=== PATIENT | female | born 1945 | race Caucasian/White ===

== ENCOUNTER 2018-06-14 01:11 | Outpatient (CLI) | payer MEDICARE, BC, SELFPAY ==
[2018-06-14 12:36] LABS: ALT 16 U/L (12-78); AST 18 U/L (15-37); Albumin 3.6 g/dL (3.4-5.0); Alkaline Phosphatase 48 U/L (46-116); Anion Gap 11.2 mmol/L (3-11); BUN 12 mg/dL (7-18); Bilirubin, Total 0.4 mg/dL (0.2-1.0); CO2 26.8 mmol/L (21.0-32.0); CREATININE 0.61 mg/dL (0.55-1.02); Chloride 104 mmol/L (98-107); Cholesterol 259 mg/dL (50-200); Glucose 86 mg/dL (70-100); HDL Cholesterol 113 mg/dL (40-60); LDL CHOLESTEROL 133 mg/dL (<100); Potassium 3.9 mmol/L (3.5-5.1); Sodium 142 mmol/L (136-145); Total Protein 6.9 g/dL (6.4-8.2); Triglyceride 33 mg/dL (30-150)
== END 2018-06-14 01:31 ==
PROVIDERS: PCP Family Medicine; Visit Provider Family Medicine
DX: I10 Essential (primary) hypertension (principal)
CPT/HCPCS: 36415; 80053; 80061; 83721

== ENCOUNTER → 2018-06-22 09:09 | Outpatient (BNVA) | payer MEDICARE, BC, SELFPAY | PROVIDERS: PCP Family Medicine; Referring Provider Family Medicine; Visit Provider Student in an Organized Health Care Education/Training Program | DX: S43.431D Superior glenoid labrum lesion of right shoulder, subsequent encounter (principal); X58.XXXD Exposure to other specified factors, subsequent encounter; I10 Essential (primary) hypertension | CPT/HCPCS: 99213 ==

== ENCOUNTER 2018-07-18 10:49 | Outpatient (CLI) | payer MEDICARE, BC, SELFPAY ==
--- NOTE | 2018-07-18 12:57 | W.PREOPHP ---
Date of service: 07/18/18 Assessment and Plan (1) Superior glenoid labrum lesion of right shoulder, initial encounter: Current visit: Yes Status: Chronic Right shoulder arthroscopy with biceps tenotomy. Details of surgery, as well as risks and pertinent anatomy, were discussed with patient. She comes in with multiple questions which were answered to her satisfactory. History of Present Illness Chief Complaint: Bilateral shoulder pain, right worse than left Narrative: Shi is a 72-year-old female who is been complaining of right shoulder pain for multiple years now. She states that she has had pain especially with heavy lifting away from her body, but more significantly pain at night, and while she is driving. Whenever her arm is at her side when she is in a seated position or when she is driving long distances she has significant pain. She does a lot of driving so this causes her pain a lot of the time. She also has pretty excruciating pain at night. She has been continue to do exercises, as they do not seem to bother her shoulder. She has had injections in the right shoulder, the most recent injection being an intra-articular injection done by Dr. Peraza which gave her a couple of months of relief from her shoulder pain. The pain has since returned to the point where she is unable to sleep or drive for any length of time. She has had an MRI done of the right shoulder which does not show any type of rotator cuff tear. There is some degeneration of the rotator cuff suggestive of a possible partial tear, but she does have a SLAP tear in the right shoulder. She also states that her left shoulder has been bothering her a little bit more, to the point where she is unable to really lift her left arm away from her body especially she is been using her shoulder for most of the day. If she takes [id number] pain medicine, she is able to use the left shoulder little bit better. Since she has failed conservative treatment of the right shoulder, Dr. Peraza does suggest a right shoulder arthroscopy with biceps tenotomy, and at the same time he would do a left shoulder injection. She agrees with this plan and is anxious to proceed. Pertinent Surgical Information Patient denies history of CVA, [place], angina, asthma, COPD, renal or liver disorders, hepatitis, bleeding disorders, diabetes, immune or thyroid disorders. Only procedure she as had was a colonoscopy. No complications from anesthesia. Review of Systems Constitutional Denies fever(s) ENT Denies dizziness and Denies sore throat Cardiovascular Denies chest pain, Denies palpitations and Denies dyspnea Respiratory Denies dyspnea Gastrointestinal Denies abdominal pain, Denies melena, Denies hematochezia, Denies diarrhea, Denies nausea and Denies vomiting Genitourinary Denies hematuria and Denies dysuria Neurologic Denies dizziness Endocrine Denies palpitations [facility] Medical History Vertigo (Chronic 08/01/14) Superior glenoid labrum lesion of right shoulder, initial encounter (Chronic 10/18/17) Rotator cuff tear arthropathy (Chronic 10/16/14) Polyp of colon (Chronic 06/10/01) Onychomycosis (Chronic) Numbness of hand (Chronic) Low back pain radiating to left leg (Chronic 02/04/16) Essential hypertension (Chronic 06/23/13) Diverticulosis (Chronic) 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 Sister Substance abuse Alcohol abuse Brother Neoplasm Brother No problems noted. Brother No problems noted. Son No problems noted. Daughter No problems noted. Social History Smoking/Tobacco Use Status: Former Tobacco Use how long ago did patient quit smokin years ago alcohol intake: current alcohol intake frequency: 0-2 drinks per day Alcohol type: wine Meds Home Medications Medication Instructions Recorded Confirmed Type cyanocobalamin (vitamin B-12) 1,000 mcg PO DAILY 02/09/13 07/18/18 History [Vitamin B-12] Toney-E 2 tab PO DAILY 07/22/15 07/18/18 History losartan-hydrochlorothiazide 1 tab-cap PO DAILY #90 tab-cap 12/07/17 07/18/18 Rx cholecalciferol (vitamin D3) 2,000 2,000 unit PO DAILY 06/14/18 07/18/18 History unit capsule ibuprofen 200 mg tablet 400 mg PO BID PRN tab 06/14/18 07/18/18 History Allergies Allergy/AdvReac Type Severity Reaction Status Date / Time Penicillins Allergy Mild Skin Rash Unverified 07/18/18 11:24 Exam [facility] Head: normocephalic and atraumatic General nose exam: no nasal discharge Throat: uvula midline and no uvular edema Other: soft palate rises symmetrically, no erythema Eyes Conjunctivae: conjunctivae normal Sclera: sclerae normal Pupils: PERRL Resp Effort & Inspection: normal respiratory effort Auscultation: clear to auscultation bilaterally and no wheezes Cardio Rate: regular rate Rhythm: regular rhythm Heart Sounds: S1 normal, S2 normal and no murmurs Extrem Other: Brief exam of RIGHT AC joint does not reveal pain to palpation.
--- NOTE | 2018-07-18 13:02 | HPE_ITS ---
Date of service: 07/18/18 Assessment and Plan (1) Superior glenoid labrum lesion of right shoulder, initial encounter: Current visit: Yes Status: Chronic Right shoulder arthroscopy with biceps tenotomy. Details of surgery, as well as risks and pertinent anatomy, were discussed with patient. She comes in with multiple questions which were answered to her satisfactory. History of Present Illness Chief Complaint: Bilateral shoulder pain, right worse than left Narrative: Shi is a 72-year-old female who is been complaining of right shoulder pain for multiple years now. She states that she has had pain especially with heavy lifting away from her body, but more significantly pain at night, and while she is driving. Whenever her arm is at her side when she is in a seated position or when she is driving long distances she has significant pain. She does a lot of driving so this causes her pain a lot of the time. She also has pretty excruciating pain at night. She has been continue to do exercises, as they do not seem to bother her shoulder. She has had injections in the right shoulder, the most recent injection being an intra-articular injection done by Dr. Peraza which gave her a couple of months of relief from her shoulder pain. The pain has since returned to the point where she is unable to sleep or drive for any length of time. She has had an MRI done of the right shoulder which does not show any type of rotator cuff tear. There is some degeneration of the rotator cuff suggestive of a possible partial tear, but she does have a SLAP tear in the right shoulder. She also states that her left shoulder has been bothering her a little bit more, to the point where she is unable to really lift her left arm away from her body especially she is been using her shoulder for most of the day. If she takes [id number] pain medicine, she is able to use the left shoulder little bit better. Since she has failed conservative treatment of the right shoulder, Dr. Peraza does suggest a right shoulder arthroscopy with biceps tenotomy, and at the same time he would do a left shoulder injection. She agrees with this plan and is anxious to proceed. Pertinent Surgical Information Patient denies history of CVA, [place], angina, asthma, COPD, renal or liver disorders, hepatitis, bleeding disorders, diabetes, immune or thyroid disorders. Only procedure she as had was a colonoscopy. No complications from anesthesia. Review of Systems Constitutional Denies fever(s) ENT Denies dizziness and Denies sore throat Cardiovascular Denies chest pain, Denies palpitations and Denies dyspnea Respiratory Denies dyspnea Gastrointestinal Denies abdominal pain, Denies melena, Denies hematochezia, Denies diarrhea, Denies nausea and Denies vomiting Genitourinary Denies hematuria and Denies dysuria Neurologic Denies dizziness Endocrine Denies palpitations [facility] Medical History Vertigo (Chronic 08/01/14) Superior glenoid labrum lesion of right shoulder, initial encounter (Chronic 10/18/17) Rotator cuff tear arthropathy (Chronic 10/16/14) Polyp of colon (Chronic 06/10/01) Onychomycosis (Chronic) Numbness of hand (Chronic) Low back pain radiating to left leg (Chronic 02/04/16) Essential hypertension (Chronic 06/23/13) Diverticulosis (Chronic) 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 Sister Substance abuse Alcohol abuse Brother Neoplasm Brother No problems noted. Brother No problems noted. Son No problems noted. Daughter No problems noted. Social History Smoking/Tobacco Use Status: Former Tobacco Use how long ago did patient quit smokin years ago alcohol intake: current alcohol intake frequency: 0-2 drinks per day Alcohol type: wine Meds Home Medications Medication Instructions Recorded Confirmed Type cyanocobalamin (vitamin B-12) 1,000 mcg PO DAILY 02/09/13 07/18/18 History [Vitamin B-12] Toney-E 2 tab PO DAILY 07/22/15 07/18/18 History losartan-hydrochlorothiazide 1 tab-cap PO DAILY #90 tab-cap 12/07/17 07/18/18 Rx cholecalciferol (vitamin D3) 2,000 2,000 unit PO DAILY 06/14/18 07/18/18 History unit capsule ibuprofen 200 mg tablet 400 mg PO BID PRN tab 06/14/18 07/18/18 History Allergies Allergy/AdvReac Type Severity Reaction Status Date / Time Penicillins Allergy Mild Skin Rash Unverified 07/18/18 11:[address] [facility] Head: normocephalic and atraumatic General nose exam: no nasal discharge Throat: uvula midline and no uvular edema Other: soft palate rises symmetrically, no erythema Eyes Conjunctivae: conjunctivae normal Sclera: sclerae normal Pupils: PERRL Resp Effort & Inspection: normal respiratory effort Auscultation: clear to auscultation bilaterally and no wheezes Cardio Rate: regular rate Rhythm: regular rhythm Heart Sounds: S1 normal, S2 normal and no murmurs Extrem Other: Brief exam of RIGHT AC joint does not reveal pain to palpation.
== END 2018-07-18 11:09 ==
PROVIDERS: PCP Family Medicine; Visit Provider Student in an Organized Health Care Education/Training Program
DX: S43.431D Superior glenoid labrum lesion of right shoulder, subsequent encounter (principal); M75.81 Other shoulder lesions, right shoulder; Z01.818 Encounter for other preprocedural examination; X58.XXXD Exposure to other specified factors, subsequent encounter; I10 Essential (primary) hypertension
CPT/HCPCS: NC

== ENCOUNTER 2018-07-28 05:56 | Day surgery (SDC) | payer MEDICARE, BC, SELFPAY ==
[2018-07-28] VITALS (8 sets, daily range): BP systolic 131–153; BP diastolic 52–89; PULSE 70–78; RESP 16–21; TEMP 36–36.6; O2SAT 95–100
[2018-07-28] MEDS: Lactated Ringers 1,000 ML 80 ML IV (06:29)
[2018-07-28] MEDS: Bupivacaine LIPOSOME/PF 133 MG/10 ML VIAL IJ (07:13)
[2018-07-28] MEDS: Bupivacaine 0.5% Pres-Free 30 ML VIAL (07:13)
--- NOTE | 2018-07-28 07:29 | PDOC.DSDIS_ITS ---
Discharge Plan Disposition Patient Disposition: HOME Condition: Good Discharge Details Reason For Visit: (R) SLAP TEAR,RTC TENDONITIS Attending Provider: Kavon Peraza Primary Care Provider: Scarlet Wallace Home Meds and New Rx's Prescriptions: New ibuprofen 600 mg tablet 600 mg PO TID PRNQty: 90 RF: 3 acetaminophen 500 mg capsule 1,000 mg PO Q8H PRN (Reason: pain) Qty: 90 RF: 0 oxycodone 5 mg tablet 5 mg PO Q6H PRN PRNQty: 8 RF: 0 Continued cholecalciferol (vitamin D3) 2,000 unit capsule 2,000 unit PO DAILY RF: 0 cyanocobalamin (vitamin B-12) [Vitamin B-12] 1,000 MCG tablet extended release 1,000 mcg PO DAILY RF: 0 losartan-hydrochlorothiazide 1 EACH tablet 1 tab-cap PO DAILY Qty: 90 RF: 4 Toney-E 200 MG tablet 2 tab PO DAILY RF: 0 Discontinued ibuprofen 200 mg tablet 400 mg PO BID PRNRF: 0 Discharge Instructions Stand Alone Forms: [facility] Shoulder Arthro Referrals: Kavon Peraza MD [ [facility] STAFF PHYSICIAN] - Equipment/Supplies: Sling Activity:: Activity as Tolerated Remove Dressings/Wound Care:: 72 hours Shower/Bathe:: 72 hours Diet:: As Tolerated Discharge Orders Discharge Orders: Discharge Order (Routine); Ordered 07/28/18 Ordered By: Kavon Peraza DS: Diagnosis Discharge Diagnosis (1) Superior glenoid labrum lesion of right shoulder, initial encounter: Status: Chronic
[2018-07-28] MEDS: methylPREDNISolone ACETATE 80 MG/ML VIAL (07:46)
[2018-07-28] MEDS: Bupivacaine 0.25% Pres-Free 30 ML VIAL (07:46)
--- NOTE | 2018-07-29 18:07 | ROE_ITS ---
Date of service: 07/28/18 Time of Service: 10:01 Operative Note DATE OF PROCEDURE: 07/28/18 PROCEDURE: - Extensive debridement of anterior and posterior glenohumeral joint and rotator cuff - Subacromial Debridement with Acromioplasty SURGEON: Kavon Peraza MEDICAL PHYSICIST: Marquise Rosas ANESTHESIA: GETA and regional ESTIMATED BLOOD LOSS: 0 PATHOLOGY: none sent COMPLICATIONS: None Patient was transported to: PACU Patient's condition: stable Indications: I have seen Shi in clinic for a painful shoulder. Pathology was confirmed based on MRI and exam findings. Nonoperative measures were exhausted but disability and pain persisted. I discussed shoulder arthroscopy and procedures. I reviewed the risks of the procedures to include, but not limited to, bleeding, infection, pain, stiffness, damage to nerves or vessels, recurrence, hardware failure, blood clot. Despite these risks, the patient elected to proceed. Findings: A diagnostic arthroscopy was performed with the following findings: - Glenohumeral Joint: No significant arthritic changes noted - Labrum: Significant inflammatory change seen in the superior labrum with elevation of the labrum off of the superior glenoid, approximately 5 mm. - Cuff: Some degeneration seen of the articular fibers of the superior rotator cuff - Biceps: Partial tearing and inflammation seen at the biceps tendon especially at his anchor - Subacromial: Significant bursitis, 2 mm partial tearing of the supraspinatus on the bursal surface, small anterolateral spur Procedure Description: Shi was greeted in the preoperative holding area where the correct side was identified and marked. The consent was reviewed with the patient and signed. The history and physical was updated. All questions were answered. She was taken back to the PACU for administration of an intrascalene nerve block. She was then taken to the operating room. The patient was placed into the supine position on the operating room table. A general anesthetic was administered. Shi was then positioned in the beach chair position. All bony prominences were well padded. The head was placed in a foam head animal trainer in a neutral position. Prophylactic antibiotics in the form of cefazolin were administered. The right arm/shoulder was then prepped with Chloraprep and draped in a standard fashion with stockinette and shoulder drape. A timeout to confirm correct identity, side and site, procedure, allergies, anesthesia, and medical concerns was performed. The arm was placed into a pneumatic burnett, [id number]. The shoulder arthroscopy was then performed. The glenohumeral joint was injected with 20 cc of normal saline with good flow back. A standard posterior portal was made and the joint was entered atraumatically with a blunt arthroscope. Once inside we had good visualization of the structures of the glenohumeral joint. An anterior portal was established with spinal needle local ization. A 6.5 mm cannula was inserted. A probe was then used to perform a diagnostic arthroscopy. There is noted to be no significant cartilage damage of the glenoid humeral joint. The labrum was was intact which showed significant signs of inflammation superiorly. There is also elevation of the superior labrum off of the superior glenoid but it was not completely detached, approximately 4-5 mm of recess. Inflammatory changes are seen at the anchor of the biceps tendon with some partial tearing of the biceps tendon.. There were no loose bodies in the inferior pouch. The superior rotator cuff was attached to the tuberosity. However there were some degenerative changes seen in the tendon itself. Using a shaver, this was debrided down into the tendon appeared much healthier. This was approximately 2-3 mm of articular resection. The subscapularis was intact. A biceps tenotomy was performed electrocautery. The superior labrum from approximately 11 to 2:00 was debrided removing any loose pieces. The superior glenoid was also debrided to promote some scarring of the superior labrum. The arthroscope was then inserted into the subacromial space. The 6.5 mm cannula was placed lateral to the CA ligament. A complete bursectomy is performed anteriorly, posteriorly, and laterally with electrocautery and shaver. This had excellent exposure of the rotator cuff. The bursal side rotator cuff was evaluated and this showed what appeared to be a partial bursal tear of the supraspinatus. It was crescent in shape and was only about 2 mm in thickness. Therefore, this was debrided. There was small anterolateral spur. Using a spinal needle a lateral portal was established. This became the viewing portal. A 5.0 mm sukh was then inserted from the posterior portal. The anterolateral corner of the acromion was then resected in plane with the posterior slope of the acromion. The scope equipment was removed from the shoulder. Excess fluid was evacuated. The portal sites were closed with 3-0 Monocryl. The wounds were dressed with Steri-Strips, 4 x 4's, ABDs, Medipore tape. A sling was applied. The patient tolerated the procedure well and was returned to the Same Day Surgery area in a stable condition suffering no known complication.
== END 2018-07-28 11:00 | disposition home or self-care (01) ==
PROVIDERS: PCP Family Medicine; Visit Provider Student in an Organized Health Care Education/Training Program
PROC: (CPT 29805; principal; 2018-07-28 07:30)
PROC: (CPT 29823; 2018-07-28 07:30)
DX: M75.81 Other shoulder lesions, right shoulder (principal); S43.431A Superior glenoid labrum lesion of right shoulder, initial encounter; X58.XXXA Exposure to other specified factors, initial encounter; M75.21 Bicipital tendinitis, right shoulder; M75.101 Unspecified rotator cuff tear or rupture of right shoulder, not specified as traumatic
CPT/HCPCS: 29823; 29826; 76942; J0690; J1040; J1100; J1885; J2370; J2405; L3670

== ENCOUNTER → 2018-08-10 13:29 | Outpatient (BNVA) | payer MEDICARE, BC, SELFPAY | PROVIDERS: PCP Family Medicine; Referring Provider Family Medicine; Visit Provider Student in an Organized Health Care Education/Training Program | DX: Z47.89 Encounter for other orthopedic aftercare (principal); M75.81 Other shoulder lesions, right shoulder; S43.431D Superior glenoid labrum lesion of right shoulder, subsequent encounter; X58.XXXD Exposure to other specified factors, subsequent encounter; M75.21 Bicipital tendinitis, right shoulder; M75.101 Unspecified rotator cuff tear or rupture of right shoulder, not specified as traumatic ==

== ENCOUNTER → 2018-09-07 10:00 | Outpatient (BNVA) | payer MEDICARE, BC, SELFPAY | PROVIDERS: PCP Family Medicine; Referring Provider Family Medicine; Visit Provider Student in an Organized Health Care Education/Training Program | DX: Z47.89 Encounter for other orthopedic aftercare (principal); S43.421D Sprain of right rotator cuff capsule, subsequent encounter; I10 Essential (primary) hypertension; X58.XXXD Exposure to other specified factors, subsequent encounter ==

== ENCOUNTER → 2018-10-12 10:39 | Outpatient (BNVA) | payer MEDICARE, BC, SELFPAY | PROVIDERS: PCP Family Medicine; Referring Provider Family Medicine; Visit Provider Student in an Organized Health Care Education/Training Program | DX: Z47.89 Encounter for other orthopedic aftercare (principal); I10 Essential (primary) hypertension; M75.101 Unspecified rotator cuff tear or rupture of right shoulder, not specified as traumatic ==

== ENCOUNTER 2018-11-24 18:57 | Outpatient (REF) | payer MEDICARE, BC, SELFPAY | END 2018-11-24 19:17 | LOC: NCHCN 18:57 | PROVIDERS: PCP Family Medicine; Visit Provider Nurse Practitioner Family | DX: N89.8 Other specified noninflammatory disorders of vagina (principal); R35.0 Frequency of micturition | CPT/HCPCS: 87077; 87086; 87480; 87510; 87660 ==

== ENCOUNTER 2018-12-28 00:52 | Outpatient (CLI) | payer MEDICARE, BC, SELFPAY ==
--- NOTE | 2018-12-28 12:46 | DI.US_ITS ---
SYMPTOMS/DIAGNOSIS: DYSFUNCTIONAL UTERINE BLEEDING, N93.8, ABNORMAL UTERINE AND VAGINAL BLEEDING PELVIC ULTRASOUND: The uterus contains numerous small calcifications and measures 5.6 cm in length, 3.1 cm in height and 5.4 cm in width with an endometrial stripe thickness of 5.9 mm. There is a question regarding the possibility of an endometrial polyp, which may measure 9.2 x 3.1 x 9 mm. Also, there is a question regarding a small amount of fluid in the endometrial cavity. There is in additional a fibroid in the mid portion of the uterus measuring 10 x 9.8 x 12 mm. There is only limited visualization of the ovaries. The right ovary measures 2.3 x 1.5 x 1.6 cm, the left ovary 2.1 x 1.0 x 1.3 cm. SUMMARY: Diffuse small uterine calcifications seen. There is a question regarding a small polyp in the endometrial cavity where there is a small quantity of fluid. Given the patient's findings today and clinical status, further assessment with hysteroscopy is suggested.
== END 2018-12-28 01:12 ==
PROVIDERS: PCP Family Medicine; Visit Provider Family Medicine
DX: N93.8 Other specified abnormal uterine and vaginal bleeding (principal); N85.8 Other specified noninflammatory disorders of uterus; D25.9 Leiomyoma of uterus, unspecified
CPT/HCPCS: 76830; 76856

== ENCOUNTER → 2019-01-04 09:42 | Outpatient (BNVA) | payer MEDICARE, BC, SELFPAY | PROVIDERS: PCP Family Medicine; Referring Provider Family Medicine; Visit Provider Student in an Organized Health Care Education/Training Program | DX: Z47.89 Encounter for other orthopedic aftercare (principal); M25.511 Pain in right shoulder; M54.5 Low back pain; M79.605 Pain in left leg; I10 Essential (primary) hypertension | CPT/HCPCS: 99213 ==

== ENCOUNTER 2019-01-11 06:09 | Day surgery (SDC) | payer MEDICARE, BC, SELFPAY ==
[2019-01-11] VITALS (8 sets, daily range): BP systolic 163–184; BP diastolic 59–84; PULSE 58–72; RESP 12–18; TEMP 36.2–36.6; O2SAT 96–98
[2019-01-11] MEDS: Lactated Ringers 1,000 ML 125 ML IV ×2 (06:40→08:20)
[2019-01-11 06:58] LABS: Absolute Basophil Count 0.05 k/cumm (0.0-0.2); Absolute Eosinophil Count 0.18 k/cumm (0.0-0.7); Absolute Monocyte Count 0.43 k/cumm (0.11-0.7); Absolute Neutrophil Count 1.92 k/cumm (1.2-6.7); Basophils % 1.1; HCT 39.6 % (36.0-46.0); HGB 13.4 g/dL (12.0-15.5); Lymphocytes % 42.4; Mean Corp. HGB Concentration 33.8 g/dL (32.0-36.0); Mean Corpuscular Hemoglobin 31.9 pg (27.0-33.0); Mean Corpuscular Volume 94.3 fL (80-95); Mean Platelet Volume 9.4 fL (8.0-11.0); Monocytes % 9.6; Neutrophils % 42.9; Platelet Count 259 x1000/uL (130-400); White Blood Cell Count 4.48 k/cumm (4.4-10.8)
[2019-01-11] MEDS: Lidocaine 1% Multi-Dose 50 ML VIAL (07:58)
[2019-01-11] MEDS: Ketorolac 30 MG/ML VIAL 15 MG IVP (08:51)
--- NOTE | 2019-01-11 17:35 | ROE_ITS ---
Date of service: 01/11/19 Time of Service: 17:32 Operative Note DATE OF PROCEDURE: 01/11/19 PRE-OP DIAGNOSIS: Endometrial polyp PROCEDURE: Hysteroscopy. Attempt at D&C SURGEON: Epifanio Avila ANESTHESIA: MAC ESTIMATED BLOOD LOSS: 5 PATHOLOGY: none sent COMPLICATIONS: None Patient was transported to: PACU Patient's condition: stable Findings: 1. Stenotic cervix with inability to access endometrial cavity. Procedure Description: The patient was taken to the operating room and after adequate with sedation the patient was placed in lithotomy position. A weighted speculum was placed in the vagina with good visualization of the cervix. Vaginal access was significantly limited however due to atrophy. paracervical block with 10 cc of 1% plain lidocaine solution was instilled. The anterior lip of the cervix was grasped with a single-tooth tenaculum. The cervix was gently dilated with García dilators but was severely stenotic. The 5 mm or degree hysteroscope was advanced with significant difficulty. I was able to partially enter the endometrial cavity with hysteroscope and there were what appeared to be intrauterine synechiae. I was unable to visualize the polyp. Also unable to pass the scope beyond the internal os. The hysteroscope was removed and I did further attempt to dilate the cervix but was never able to pass even the smallest curette. I did pass a Kevorkian curette but was concerned for the possibility of uterine perforation at this point. The decision was made to abandon the procedure despite not being able to perform the polypectomy. All i nstrumention was removed and the patient was transferred to PACU stable condition.
== END 2019-01-11 11:23 | disposition home or self-care (01) ==
LOC: SUR 06:09
PROVIDERS: PCP Family Medicine; Visit Provider Obstetrics & Gynecology
PROC: 0UDB8ZZ Extraction of Endometrium, Via Natural or Artificial Opening Endoscopic (ICD-10-PCS; CPT 58558; principal; 2019-01-11 07:30)
DX: N84.0 Polyp of corpus uteri (principal); N88.2 Stricture and stenosis of cervix uteri; N85.6 Intrauterine synechiae; N95.2 Postmenopausal atrophic vaginitis; I10 Essential (primary) hypertension
CPT/HCPCS: 58555; 36415; 86850; 86900; 86901; 85025; J1100; J1885; J2405; J3010

== ENCOUNTER 2019-02-01 00:34 | Outpatient (CLI) | payer MEDICARE, BC, SELFPAY ==
--- NOTE | 2019-02-01 12:30 | DI.MAMMO_ITS ---
SYMPTOMS/DIAGNOSIS: SCREENING, Z12.31 MAMMOGRAMS: Mammograms were interpreted according to the usual protocol including computer analysis with CAD system, tomosynthesis and C view imaging. Comparison is made with prior examinations. No suspicious masses or microcalcifications are seen. There is no definite evidence of malignancy. IMPRESSION: Negative mammogram. Routine screening is recommended. Category 1, breast density B. MQSA ASSESSMENT OF FINDINGS: Negative. Category 1. Patient will receive a letter notifying them of these results. BI-RADS category B. There are scattered areas of fibroglandular density.
--- NOTE | 2019-02-01 12:40 | DI.RAD_ITS ---
SYMPTOM/DIAGNOSIS: HIP PAIN BILAT M25.559 M25.551 M25.552 PELVIS AND BILATERAL HIPS: No priors. In the right hip there is moderate joint space narrowing. There are prominent hypertrophic changes seen at the acetabular roof. Subchondral sclerosis is present. In the left hip there is mild to moderate joint space narrowing and hypertrophic changes of the acetabulum. No acute fractures or dislocations are seen. There are degenerative changes seen at the sacroiliac joints. Symphysis pubis appears intact. The soft tissues are unremarkable. 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
--- NOTE | 2019-02-01 12:40 | DI.RAD_ITS ---
SYMPTOM/DIAGNOSIS: LBP, ACUTE LEFT SIDED LBP M54.5 LUMBAR SPINE: AP , lateral and bilateral oblique views of the lumbar spine were obtained. There are 5 lumbar type vertebral bodies. There is Grade 1 pseudospondylolisthesis of L4 on L5. The disc heights appear well maintained. There are end plate osteophytes throughout the lumbar spine. The findings are most marked at L3-4 and L4-5. There are degenerative changes at the facets throughout the lumbar spine. No acute fracture or subluxation is seen. The bones appear mildly osteopenic. Calcium is seen in the abdominal aorta. IMPRESSION: Moderately severe degenerative changes in the lumbar spine.
== END 2019-02-01 00:54 ==
PROVIDERS: PCP Family Medicine; Visit Provider Family Medicine
DX: Z12.31 Encounter for screening mammogram for malignant neoplasm of breast (principal); M25.551 Pain in right hip; M25.552 Pain in left hip; M54.5 Low back pain; M16.0 Bilateral primary osteoarthritis of hip; M43.16 Spondylolisthesis, lumbar region
CPT/HCPCS: 73521; 77063; 77067; 72110

== ENCOUNTER 2019-06-30 02:18 | Outpatient (CLI) | payer MEDICARE, BC, SELFPAY ==
--- NOTE | 2019-06-30 08:10 | DI.US_ITS ---
EXAM: US PELVIS TRANSVAGINAL CLINICAL HISTORY: thickened endometrial lining, dysfunctional uterine bleeding TECHNIQUE: Ultrasound performed using standard protocol. COMPARISON: US PELVIS TRANSVAGINAL from 12/28/2018 FINDINGS: Pelvic ultrasound was performed transabdominally and transvaginally. Please see the accompanying allyssa a sheet for measurements of the pelvic structures. Uterus is normal in size and shape. Endometrial stripe is thickened and heterogeneous with fluid in the endometrial cavity. There is a probable 10 x 9 x 4 millimeter in diameter endometrial polyp. Ovaries appear normal for age. No free fluid identified in the cul-de-sac. Limited scanning of the kidneys is unremarkable. IMPRESSION: Abnormal appearance of the endometrium with heterogeneity of the stripe, probable 10 millimeter polyp , and fluid in the endometrial cavity. Neoplastic disease not excluded and endometrial biopsy is rec ommended.
== END 2019-06-30 02:38 ==
PROVIDERS: PCP Family Medicine; Visit Provider Family Medicine
DX: N93.8 Other specified abnormal uterine and vaginal bleeding (principal); R93.89 Abnormal findings on diagnostic imaging of other specified body structures; N84.0 Polyp of corpus uteri
CPT/HCPCS: 76830; 76856

== ENCOUNTER 2019-07-17 01:24 | Outpatient (CLI) | payer MEDICARE, BC, SELFPAY ==
--- NOTE | 2019-07-17 14:45 | DI.MRI_ITS ---
EXAM: MR LUMBAR SPINE WO CLINICAL HISTORY: left LBP and leg pain M54.16 RADICULOPATHY. TECHNIQUE: Multiplanar multisequence MRI was performed. COMPARISON: XR lumbar spine complete from 02/01/2019 FINDINGS: There is no evidence of compression fracture. The marrow signal is normal. Conus medullaris appea rs normal. Parapelvic cysts are noted in the left kidney. The L1-2 disc appears normal. There are facet degenerative changes and ligamentous hypertrophy causing mild spinal stenosis. At L2-3, the disc appears normal. There is again ligamentous hypertrophy and facet degenerative rudolph ges causing mild narrowing of the AP dimension of the central canal. At L 3 4, there are broad-based disc osteophytes as well as facet degenerative changes and ligamentous hypertrophy combining to prod uce severe central canal stenosis and mild bilateral neural foraminal narrowing. At L4-5, there is mild loss of disc height and broad-based disc bulging. There are prominent facet d egenerative changes causing mild spondylolisthesis. There is severe central canal stenosis and moder ate to severe bilateral neural foraminal narrowing. At L5-S1, there is mild disc bulging. There are mild to moderate facet joint degenerative changes. There is neural foraminal encroachment bilateral ly of moderate degree. IMPRESSION: Degenerative disc changes and facet degenerative changes combine to produce severe central canal sten osis and neural foraminal narrowing at L3-4 and L4-5.
== END 2019-07-17 01:44 ==
PROVIDERS: PCP Family Medicine; Visit Provider Family Medicine
DX: M54.5 Low back pain (principal); M54.16 Radiculopathy, lumbar region; M47.27 Other spondylosis with radiculopathy, lumbosacral region; M51.17 Intervertebral disc disorders with radiculopathy, lumbosacral region
CPT/HCPCS: 72148

== ENCOUNTER 2019-08-30 03:26 | Outpatient (CLI) | payer MEDICARE, BC, SELFPAY ==
[2019-08-30 10:45] LABS: ALT 17 U/L (14-59); AST 19 U/L (15-37); Albumin 3.7 g/dL (3.4-5.0); Alkaline Phosphatase 56 U/L (46-116); BUN 9 mg/dL (7-18); Bilirubin, Total 0.5 mg/dL (0.2-1.0); CREATININE 0.62 mg/dL (0.55-1.02); Calcium 8.8 mg/dL (8.5-10.1); Calculated LDL 147 mg/dL (<100); Chloride 100 mmol/L (98-107); Cholesterol 271 mg/dL (<200); Glucose 85 mg/dL (74-106); HDL Cholesterol 108 mg/dL (40-60); Potassium 3.6 mmol/L (3.5-5.1); Sodium 138 mmol/L (136-145); TSH (W/Ref FT4) 1.64 uIU/mL (0.36-3.74); Total Protein 6.9 g/dL (6.4-8.2); Triglyceride 81 mg/dL (<150)
== END 2019-08-30 03:46 ==
PROVIDERS: PCP Family Medicine; Visit Provider Family Medicine
DX: E78.00 Pure hypercholesterolemia, unspecified (principal); I10 Essential (primary) hypertension; N93.8 Other specified abnormal uterine and vaginal bleeding
CPT/HCPCS: 36415; 80053; 80061; 84443

== ENCOUNTER 2019-09-05 02:31 | Outpatient (CLI) | payer MEDICARE, BC, SELFPAY ==
[2019-09-05 11:12] LABS: HGB 12.8 g/dL (12.0-15.5); Mean Corp. HGB Concentration 33.7 g/dL (32.0-36.0); Mean Corpuscular Hemoglobin 31.9 pg (27.0-33.0); Mean Corpuscular Volume 94.8 fL (80-95); Mean Platelet Volume 9.4 fL (8.0-11.0); Platelet Count 306 x1000/uL (130-400); RBC 4.01 m/cumm (4.00-5.20); RBC Distribution Width 12.3 % (11.7-14.6); White Blood Cell Count 4.92 k/cumm (4.4-10.8)
== END 2019-09-05 02:51 ==
PROVIDERS: PCP Family Medicine; Visit Provider Emergency Medicine
DX: I10 Essential (primary) hypertension (principal); Z01.818 Encounter for other preprocedural examination
CPT/HCPCS: 36415; 85027

== ENCOUNTER 2020-08-13 01:36 | Outpatient (CLI) | payer MEDICARE, BC, SELFPAY ==
--- NOTE | 2020-08-13 | DI.US_ITS ---
EXAM: US PELVIS TRANSVAGINAL CLINICAL HISTORY: ENDOMETRIAL POLYP,N84.0,F/U ABNL US OF UTERUS,R93.5. TECHNIQUE: Transabdominal and transvaginal pelvic ultrasound was performed using standard protocol. COMPARISON: US US PELVIS TRANSVAGINAL from 06/30/2019 FINDINGS: KIDNEYS: Kidneys are symmetric in size. No evidence of renal calculi. No evidence of hydronephrosis. There are 2 left simple parapelvic cysts. One cyst measures 1 x 1.4 x 0.8 cm. The 2nd cyst measures 1.2 x 2 x 1.4 cm. UTERUS: Position: Anteverted. Size: 5.4 long by 2.7 AP by 4.7 transverse cm Endometrium: Within the endometrial canal there is again seen a 0.8 x 0.4 x 1.3 cm solid mildly vascu lar mass. Previously this measured 0.9 x 0.4 x 1.0 cm. There is a small amount of fluid seen within the endometrial canal. Myometrium: 4 discrete myometrial masses are present likely reflecting fibroids. The largest measure s 1.2 x 1.2 x 1.5 cm. Several of these fibroids contain calcifications. Cervix: Unremarkable. OVARIES: Right: 1.3 x 0.7 x 0.6 cm Cyst or mass: None. Left: 1.3 x 0.6 x 0.5 cm Cyst or mass: None. DOPPLER: Color: Symmetric and uniform flow to both ovaries. No hyperemia. Duplex: Normal ovarian arterial waveforms visualized. CUL-DE-SAC: Free fluid: None. Other: None. IMPRESSION: 1. Simple left parapelvic cysts. 2. Stable solid mass within the endometrial canal. This may represent a polyp. Neoplasm cannot be e xcluded. 3. Multiple uterine fibroids. 4. Unremarkable bilateral ovaries. DATA REPOSITORY:
== END 2020-08-13 01:37 | disposition home or self-care (01) ==
LOC: DI 01:36
PROVIDERS: PCP Family Medicine; Visit Provider Obstetrics & Gynecology Gynecologic Oncology
DX: N84.0 Polyp of corpus uteri (principal); N28.1 Cyst of kidney, acquired; D25.9 Leiomyoma of uterus, unspecified
CPT/HCPCS: 76830; 76856

== ENCOUNTER 2021-01-06 18:21 | Outpatient (REF) | payer MEDICARE, BC, SELFPAY ==
[2021-01-06 13:00] LABS: ALT 17 U/L (14-59); AST 19 U/L (15-37); Albumin 3.8 g/dL (3.4-5.0); Alkaline Phosphatase 48 U/L (46-116); Anion Gap 8.7 mmol/L (3-11); BUN 10 mg/dL (7-18); Bilirubin, Total 0.8 mg/dL (0.2-1.0); CO2 28.3 mmol/L (21.0-32.0); CREATININE 0.7 mg/dL (0.55-1.02); Calcium 9.3 mg/dL (8.5-10.1); Chloride 102 mmol/L (98-107); GGT 25 U/L (5-55); Glucose 100 mg/dL (74-106); Magnesium 1.9 mg/dL (1.8-2.4); Potassium 4.1 mmol/L (3.5-5.1); Sodium 139 mmol/L (136-145); Total Protein 7.3 g/dL (6.4-8.2)
== END 2021-01-06 18:22 | disposition home or self-care (01) ==
LOC: LBN 18:21
PROVIDERS: PCP Family Medicine; Visit Provider Family Medicine
DX: E78.00 Pure hypercholesterolemia, unspecified (principal); I10 Essential (primary) hypertension
CPT/HCPCS: 80053; 82977; 83735

== ENCOUNTER 2021-01-16 02:16 | Outpatient (CLI) | payer MEDICARE, BC, SELFPAY ==
--- NOTE | 2021-01-16 07:36 | DI.MAMMO_ITS ---
Exam(s) MAMMO SCREENING EXAM: MAMMO SCREENING CLINICAL HISTORY: screening,Z12.39 TECHNIQUE: Mammograms were interpreted according to the usual protocol including computer analysis w [employer] CAD system, tomosynthesis and C-view imaging. COMPARISON: 2011 through 2018 FINDINGS: The breasts are composed of scattered fibroglandular densities, Breast Density category B. No suspicious masses or suspicious microcalcifications are seen. Incidental vascular calcifications. No skin thickening or abnormal axillary lymph nodes are seen. There has been no significant change from prior exams. IMPRESSION: BI-RADS Category 1, Negative mammogram Yearly screening mammography is recommended. Breast Density - Category B, scattered fibroglandular densities. A negative radiographic report should not delay biopsy if a dominant or clinically suspicious mass is present. Up to ten percent of cancers are not identified on mammography. A negative report may reinforce clinical impression. Adenosis and dense breasts may obscure an underlying neoplasm. False positive reports average 6 to 10%. Patient will receive a letter notifying them of these results.
== END 2021-01-16 02:36 ==
PROVIDERS: PCP Family Medicine; Visit Provider Family Medicine
DX: Z12.31 Encounter for screening mammogram for malignant neoplasm of breast (principal); R92.8 Other abnormal and inconclusive findings on diagnostic imaging of breast
CPT/HCPCS: 77063; 77067

== ENCOUNTER 2021-03-03 15:54 | Outpatient (REF) | payer MEDICARE, BC, SELFPAY ==
[2021-03-03 20:20] LABS: Bilirubin Negative (Negative); Blood Negative (Negative); Clarity Clear (Clear); Glucose Negative (Negative); Ketones Negative (Negative); Leukocyte Esterase Small (Negative); Nitrite Negative (Negative); Specific Gravity 1.015 (1.005-1.025); Urobilinogen 0.2 EU/dL (Up TO 0.2)
[2021-03-03 20:28] LABS: RBC 0-2 HPF (0-2)
[2021-03-03 20:29] LABS: Bacteria Few HPF (Negative); C & S Indicated? Yes; Casts Negative LPF (Negative); Crystals Negative HPF (Negative); Epithelial Cells Few HPF (Negative); Mucus Negative (Negative)
== END 2021-03-03 15:55 | disposition home or self-care (01) ==
LOC: LBN 15:54
PROVIDERS: PCP Family Medicine; Visit Provider Family Medicine
DX: R35.0 Frequency of micturition (principal)
CPT/HCPCS: 81003; 81015; 87086

== ENCOUNTER 2021-11-13 12:08 | Outpatient (CLI) | payer MEDICARE, BC, SELFPAY ==
--- NOTE | 2021-11-13 11:00 | DI.RAD_ITS ---
Exam(s) XR HIP LT COMPLETE AP PELVIS EXAM: XR HIP LT COMPLETE AP PELVIS CLINICAL HISTORY: left hip pain TECHNIQUE: COMPARISON: CR XR hip pelvis adult Bl from 02/01/2019 FINDINGS: Two views were obtained. There is moderate loss of the cartilaginous joint space of the right hip an d mild loss of cartilaginous joint space of the left hip. There are very prominent acetabular margin al osteophytes seen bilaterally. Possibility of femoroacetabular impingement is raised bilaterally. There is mild subchondral sclerosis the femoral heads and acetabula bilaterally. No other significant bony abnormality seen. IMPRESSION: Moderate DJD both hips, question femoroacetabular impingement bilaterally. RADIATION DOSE DELIVERED: Total DLP
== END 2021-11-13 12:09 | disposition home or self-care (01) ==
LOC: DIORS 12:08
PROVIDERS: PCP Family Medicine; Referring Provider Family Medicine; Visit Provider Student in an Organized Health Care Education/Training Program
DX: M16.12 Unilateral primary osteoarthritis, left hip; M16.11 Unilateral primary osteoarthritis, right hip
CPT/HCPCS: 99214; 73502

== ENCOUNTER → 2021-11-25 01:35 | Outpatient (CLI) | payer MEDICARE, BC, SELFPAY ==
--- NOTE | 2021-11-25 06:30 | DI.DEXA_ITS ---
Exam(s) XR DEXA BONE DENSITY W/WO ALEXUS EXAM: XR DEXA BONE DENSITY W/WO ALEXUS CLINICAL HISTORY: osteoporosis,m81.0 TECHNIQUE: Routine DEXA evaluation of the lumbar spine, hip, or forearm. COMPARISON: CR XR HIP LT COMPLETE AP PELVIS from 11/13/2021 FINDINGS: Performed on a Hologic unit. Lateral image: No compression fracture evident. Lumbar Spine total T-score: -0.2 Hip total T-score:-0.8 Independent reading at the level of the femoral neck yields at T-score of -0.9. Forearm total T-score: -2.0 IMPRESSION: Bone mineral density measures in the osteopenia range. Fracture risk is moderate. Note: Any spine fracture indicates 5x risk for subsequent spine fracture and 2x risk for subsequent h ip fracture. World Health Organization criteria for BMD interpretation classify patients: Normal...... T- Score at or above -1.0 Osteopenic... T- Score between -1.0 and -2.5 Osteoporosis... T-Score at or below -2.5
== END ==
PROVIDERS: PCP Family Medicine; Visit Provider Family Medicine
DX: M81.0 Age-related osteoporosis without current pathological fracture (principal); M85.89 Other specified disorders of bone density and structure, multiple sites
CPT/HCPCS: 77080

== ENCOUNTER 2021-12-11 12:46 | Outpatient (CLI) | payer MEDICARE, BC, SELFPAY ==
--- NOTE | 2021-12-11 12:44 | DI.RAD_ITS ---
Exam(s) XR PELVIS AP EXAM: XR PELVIS AP CLINICAL HISTORY: L MARTHA. TECHNIQUE: 2D digital imaging was performed. COMPARISON: CR XR HIP LT COMPLETE AP PELVIS from 11/13/2021 FINDINGS: Single view No fractures. Degenerative changes both hips again noted, unchanged. Again noted are acetabular cristal f extension bilaterally. No osseous lesions. IMPRESSION: DATA REPOSITORY: RADIATION DOSE DELIVERED:
== END 2021-12-11 12:47 | disposition home or self-care (01) ==
LOC: DIORS 12:47
PROVIDERS: PCP Family Medicine; Referring Provider Family Medicine; Visit Provider Physician Assistant
DX: M16.12 Unilateral primary osteoarthritis, left hip (principal)
CPT/HCPCS: 72170

== ENCOUNTER 2021-12-15 03:09 | Outpatient (CLI) | payer MEDICARE, BC, SELFPAY ==
[2021-12-15 12:09] LABS: HCT 37.3 % (36.0-46.0); HGB 12.5 g/dL (11.2-15.7); MCH 31.5 pg (27.0-33.0); MCHC 33.5 % (32.0-36.0); MCV 94 fL (80-95); MPV 9.1 fL (8.0-11.0); Platelet Count 256 10^3/uL (130-400); RBC 3.97 10^6/uL (3.93-5.22); RDW 12.3 % (11.7-14.6); RDW-SD 43.1 fL; WBC 6.38 10^3/uL (4.4-10.8)
[2021-12-15 12:23] LABS: Source Nasal/Nares
[2021-12-15 13:45] LABS: BUN 11 mg/dL (7-18); CREATININE 0.7 mg/dL (0.55-1.02); Calcium 8.9 mg/dL (8.5-10.1); Chloride 102 mmol/L (98-107); Glucose 99 mg/dL (74-106); Potassium 3.6 mmol/L (3.5-5.1); Sodium 140 mmol/L (136-145)
[2021-12-15 15:36] LABS: COVID-19 PCR Negative (Negative)
== END 2021-12-15 03:10 | disposition home or self-care (01) ==
LOC: LBO 03:09
PROVIDERS: PCP Family Medicine; Visit Provider Student in an Organized Health Care Education/Training Program
DX: M25.552 Pain in left hip (principal); M16.12 Unilateral primary osteoarthritis, left hip; Z20.822 Contact with and (suspected) exposure to COVID-19; Z01.818 Encounter for other preprocedural examination; Z01.812 Encounter for preprocedural laboratory examination
CPT/HCPCS: 80048; 85027; 87635; U0005

== ENCOUNTER 2021-12-15 03:46 | Outpatient (CLI) | payer MEDICARE, BC, SELFPAY | END 2021-12-15 03:47 | disposition home or self-care (01) | LOC: LBO 03:46 | PROVIDERS: PCP Family Medicine; Visit Provider Student in an Organized Health Care Education/Training Program ==

== ENCOUNTER 2021-12-17 05:45 | Day surgery (SDC) | payer MEDICARE, BC, SELFPAY ==
[2021-12-17] VITALS (10 sets, daily range): BP systolic 110–163; BP diastolic 51–81; PULSE 59–67; RESP 12–22; TEMP 35.8–36.4; O2SAT 95–100; BMI 25.3
[2021-12-17] MEDS: Acetaminophen 500 MG TAB 1000 MG PO (06:31)
[2021-12-17] MEDS: Celecoxib 200 MG CAP 400 MG PO (06:32)
[2021-12-17] MEDS: Lactated Ringers 1,000 ML 80 ML IV (06:45)
--- NOTE | 2021-12-17 06:45 | DI.RAD_ITS ---
Exam(s) XR HIP LT IN OR EXAM: XR HIP LT IN OR CLINICAL HISTORY: Degenerative joint disease of left hip. TECHNIQUE: 2D digital imaging was performed. COMPARISON: No exams were available for comparison FINDINGS: Fluoroscopy was provided intraoperatively during left hip arthroplasty. See procedure report for details. Total fluoroscopic time 21.8 seconds. Cumulative dose 2.0563mGy IMPRESSION: DATA REPOSITORY: RADIATION DOSE DELIVERED:
--- NOTE | 2021-12-17 06:54 | W.ANESPRE ---
General Info Date of Service Date Performed: 12/17/21 Height: 5 ft 3 in Weight: 64.9 kg Body Mass Index (BMI): 25.3 Surgical Procedure: Operation Date: 12/17/21 07:50 Proposed Procedure Side Surgeon p Hip Total Hip Anterior Left Kavon Hansen MD Meds Allergies and Home Medications Allergies Allergy/AdvReac Type Severity Reaction Status Date / Time Penicillins Allergy Mild Skin Rash Verified 12/17/21 06:12 Home Medication Medication Instructions Recorded cyanocobalamin (vitamin B-12) 1,000 mcg PO DAILY 02/09/13 1,000 mcg tablet,extended release (Vitamin B-12 ER) cholecalciferol (vitamin D3) 50 2,000 unit PO DAILY 06/14/18 mcg (2,000 unit) capsule acetaminophen 500 mg capsule 1,000 mg PO Q8H PRN pain #90 caps 07/28/18 ibuprofen 600 mg tablet 600 mg PO TID PRN pain (scale 08/07/19 score 4-6) #270 tabs calcium carb-vit [id number] 1 tab PO DAILY 03/18/21 333 mg-200 unit-133 mg-5 mg tablet losartan 100 1 tab PO DAILY #90 tab-caps 07/15/21 mg-hydrochlorothiazide 12.5 mg tablet amlodipine 5 mg tablet 5 mg PO HS 12/15/21 acetaminophen 500 mg capsule 1,000 mg PO Q8H PRN PRN #90 caps 12/17/21 aspirin 81 mg tablet,delayed 81 mg PO BID #60 tabs 12/17/21 release ibuprofen 600 mg tablet 600 mg PO TID #90 tabs 12/17/21 oxycodone 5 mg tablet 5 mg PO Q4H PRN #18 tabs 12/17/21 pantoprazole 40 mg tablet,delayed 40 mg PO DAILY #30 tabs 12/17/21 release (Protonix) Current Visit Medications: Current Medications Generic Name Dose Route Start Last Admin Trade Name Freq PRN Reason Stop Dose Admin Acetaminophen 1,000 mg 12/17/21 06:00 12/17/21 06:31 Acetaminophen 500 Mg Tab PO 12/17/21 16:00 1,000 mg PREOP BRETT Administration Celecoxib 400 mg 12/17/21 06:00 12/17/21 06:32 Celecoxib 200 Mg Cap PO 12/17/21 16:00 400 mg PREOP BRETT Administration Tranexamic Acid 1,000 mg/ 60 mls @ 360 mls/hr 12/17/21 06:00 Sodium Chloride IV 12/17/21 16:00 PREOP BRETT Ringer's Solution 1,000 mls @ 80 mls/hr 12/17/21 06:00 IV 01/15/22 23:59 INFUSION BRETT Cefazolin Sodium/Dextrose 2 gm in 50 mls @ 100 mls/hr 12/17/21 06:00 Ancef Duplex IVPB 01/15/22 23:59 PREOP BRETT IV Miscellaneous Supplies 1 each 12/17/21 06:00 Iv Access IV 01/15/22 23:59 DIRECTED BRETT Sodium Chloride 0 ml 12/17/21 06:00 Normal Saline Flush 10 Ml Syr IV 01/15/22 23:59 PRN PRN Sodium Chloride 0 ml 12/17/21 06:00 Normal Saline 10 Ml Vial IJ 01/15/22 23:59 DIRECTED PRN Sterile Water 0 ml 12/17/21 06:00 Water,Injection,Sterile 10 Ml Vial IJ 01/15/22 23:59 DIRECTED PRN PFSH Active Problems Active Problems: Problem Status Onset Code 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 Diverticulosis K57.90 Essential hypertension 06/23/13 I10 Hypercholesterolemia E78.00 Numbness of hand R20.0 Onychomycosis B35.1 Rotator cuff tear arthropathy 10/16/14 M75.100, 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 Spinal stenosis at L4-L5 level M48.061 Spondylolisthesis at L4-L5 level M43.16 Foraminal stenosis of lumbosacral region M48.07 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 Abnormal ultrasound of pelvis R93.89 Chronic left ear pain H92.02, G89.29 Referred otalgia of both ears H92.03 Muscle spasm M62.838 Facial lesion L98.9 Lateral epicondylitis M77.10 Acute shoulder bursitis M75.50 Degenerative joint disease of right hip M16.11 Degenerative joint disease of left hip M16.12 Osteoporosis M81.0 Medical History Medical History Alcohol intake above recommended sensible limits Calcific shoulder tendinitis Calcific tendinitis of shoulder left shoulder MRI: labral tear ; bursal surface tear Colon polyps Diaphragm dysfunction Diarrhea DUB (dysfunctional uterine bleeding) History of tobacco use Hypercholesterolemia Hypertension Polyp of colon (06/10/01) Rotator cuff injury Superior glenoid labrum lesion of right shoulder, initial encounter (10/18/17) Superior glenoid labrum lesion of right shoulder, initial encounter (10/18/17) Vaginal discharge Vertigo Vertigo (08/01/14) Surgical History Surgical History History of back surgery L3,4,4-5. History of bladder repair surgery Bladder tuck 80's-90's for tilted uterus History of colonoscopy Status post arthroscopy of right shoulder Extensive debridement of anterior/posterior glenohumeral joint and RTC, subacromial debridement with acromioplasty, biceps tenotomy DOS: 07/28/18 Dr. Hansen Status post debridement 07/28/18 EXTENSIVE DEBRIDEMENT OF ANTERIOR AND POSTERIOR GLENOHUMERAL JOINT AND ROTATOR CUFF; SUBACROMIAL DEBRIDEMENT WITH ACROMIOPLASTY; DR. HANSEN Tobacco Smoking/Tobacco Use Status: Former Tobacco Use Passive smoking exposure: Yes Second hand exposure: Yes Alcohol Alcohol Intake: current Alcohol intake frequency: 3 or more drinks per day Alcohol type: wine Substance Use Substance use: Never Substance use type: does not use Details: alcohol: t-2, 2 glasses Vital Signs and Lab Results Vital Signs Most Recent Vital Signs in EMR: Most Recent Vital Signs Temp Pulse Resp BP Pulse Ox 36.3 C L 67 18 163/81 H 98 12/17/21 06:23 12/17/21 06:23 12/17/21 06:23 12/17/21 06:23 12/17/21 06:23 Lab Results Blood Type / Crossmatch: No Data to Display Complete Blood Count: White Blood Count 6.38 10^3/uL (4.4-10.8) 12/15/21 11:55 Red Blood Count 3.97 10^6/uL (3.93-5.22) 12/15/21 11:55 Hemoglobin 12.5 g/dL (11.2-15.7) 12/15/21 11:55 Hematocrit 37.3 % (36.0-46.0) 12/15/21 11:55 Platelet Count 256 10^3/uL (130-400) 12/15/21 11:55 Complete Metabolic Panel: Sodium Level 140 mmol/L (136-145) 12/15/21 11:55 Potassium Level 3.6 mmol/L (3.5-5.1) 12/15/21 11:55 Chloride Level 102 mmol/L (98-107) 12/15/21 11:55 Carbon Dioxide Level 29.0 mmol/L (21.0-32.0) 12/15/21 11:55 Blood Urea Nitrogen 11 mg/dL (7-18) 12/15/21 11:55 Creatinine 0.7 mg/dL (0.55-1.02) 12/15/21 11:55 Estimated GFR/1.73 m2 >= 60.00 (mL/min/1.73m2) 12/15/21 11:55 Calcium Level 8.9 mg/dL (8.5-10.1) 12/15/21 11:55 Glucose Level 99 mg/dL (74-106) 12/15/21 11:55 Liver Function Panel: No Data to Display Coagulation Panel: No Data to Display Cardiac Panel: No Data to Display Arterial Blood Gas: No Data to Display Venous Blood Gas: No Data to Display Pancreas Panel: No Data to Display Thyroid Panel: No Data to Display Infectious Disease: Coronavirus (COVID-19)(PCR) Negative (Negative) 12/15/21 12:10 Coronavirus 2019 Source Nasal/Nares 12/15/21 12:10 Blood Cultures: No Data to Display Toxicology Panel: No Data to Display Anesthesia Assessment and Plan Anesthesia History Personal History: No History of Anesthesia Complications Family History: No Family History of Anesthesia Complications Exercise Tolerance Exercise Tolerance: Metabolic Equivalents>4 Pertinent Negatives Pertinent Negatives: No Symptoms of GERD, No Major Cardiovascular Symptoms or Complaints, No Major Pulmonary Symptoms or Complaints and No History of CVA/TIA Cardiac & Pulmonary Exam Cardiac Exam: Normal S1/S2 Heart Sounds Pulmonary Exam: Clear Bilateral Breath Sounds Implantable Cardiac Device Does patient have a Pacemaker or an ICD?: No Airway Exam Known Difficult Airway: No Mallampati Class: 2 Mouth Opening: Normal (> 3cm) Thyromental Distance: Greater than 3 cm Neck Range of Motion: Full ROM Neck Circumference: Normal Teeth Condition: Normal Dentition and Removable Dentures/Plates Upper (Partial on the top, left at home) ASA Classification ASA Score: ASA 3 Emergency Case?: No NPO Status NPO Status: NPO Clears >2 hours, Solids >8 hours Anesthesia Plan Resuscitation Status: Full Code Anesthesia Technique: General Anesthesia Airway Planned: Endotracheal Tube Monitors Used: Standard Monitors
--- NOTE | 2021-12-17 07:32 | W.PM.DSUDISC ---
Discharge Plan Disposition Patient Disposition: HOME Condition: Stable Discharge Details Reason For Visit: Left MARTHA Attending Provider: Kavon Peraza Primary Care Provider: Scarlte Wallace Home Meds and New Rx's Prescriptions: New aspirin 81 mg tablet,delayed release (DR/EC) 81 mg PO BID Qty: 60 0RF pantoprazole [Protonix] 40 mg tablet,delayed release (DR/EC) 40 mg PO DAILY Qty: 30 0RF ibuprofen 600 mg tablet 600 mg PO TID Qty: 90 0RF acetaminophen 500 mg capsule 1,000 mg PO Q8H PRN PRNQty: 90 0RF oxycodone 5 mg tablet 5 mg PO Q4H PRNQty: 18 0RF Continued losartan-hydrochlorothiazide 100-12.5 mg tablet 1 tab PO DAILY Qty: 90 4RF cholecalciferol (vitamin D3) 2,000 unit capsule 2,000 unit PO DAILY calcium carb-D3-mag [id number] [phone] mp-fznh-ar-mg tablet 1 tab PO DAILY Rx Instructions: administer with a meal cyanocobalamin (vitamin B-12) [Vitamin B-12] 1,000 MCG tablet extended release 1,000 mcg PO DAILY ibuprofen 600 mg tablet 600 mg PO TID PRN (Reason: pain (scale score 4-6)) Qty: 270 3RF acetaminophen 500 mg capsule 1,000 mg PO Q8H PRN (Reason: pain) Qty: 90 0RF amlodipine 5 mg tablet 5 mg PO HS Discharge Instructions Additional Instructions: Total Hip Discharge Instructions Activity: The most important activity is to walk. You should try to take short walks a few times a day. You have no restrictions on movement or positioning, but do not try to force what you do. You will find some stiffness and weakness with hip flexion (lifting your knee). Do not try to strengthen this too early, continue to practice walking and stairs and this will come. - Outpatient physical therapy can be helpful to help return you to a normal gait and improve your flexibility and strength. This can start around 2 weeks. For some patients, it?s not necessary. Usually this is determined at the time of discharge or at the first post-operative visit. - You should wear the TANI hose on both legs for 2 weeks. Dressing: Keep the surgical dressing in place for at least one week. After the first week it may be removed and replace with light gauze and tape or nothing. It may get wet after 3 days but avoid soaking the dressing. If it gets wet, just lightly pat dry. It is important to always keep some gauze between skin folds, especially when you are sitting. Spend some time with the wound exposed when you are lying flat as the incision does wrinkle onto itself. Medications: - You should take Tylenol and an anti-inflammatory Ibuprofen as your primary pain control medications. Please call the office for another alternative (Celebrex, Meloxicam, Naproxen/Aleve). - You have been prescribed a stronger pain medication Oxycodone for breakthrough pain, take as needed as prescribed. - You have also been prescribed a stomach acid reduction agent Pantoprozole to help reduce stomach acid and reflux. - You will be taking Aspirin 81mg twice a day for DVT prevention unless instructed otherwise. - If you have constipation you should take Colace or Miralax (both [id number]). It takes most people 3-4 days to have a bowel movement. Follow-up: 2 weeks If you have any acute concerns or questions, please do not hesitate to contact the office at [phone]. You may contact Dr. Peraza with any questions after hours through the hospital at [phone] or on his cell phone at [phone]. Referrals: Kavon Peraza MD [ [facility] STAFF PHYSICIAN] - Equipment/Supplies: Walker Activity:: Activity as Tolerated Remove Dressings/Wound Care:: Do Not Remove Shower/Bathe:: 72 hours Diet:: As Tolerated Discharge Orders Discharge Orders: Discharge Order (Routine); Ordered 12/17/21 Ordered By: Cande Serrato DS: Diagnosis Discharge Diagnosis (1) Degenerative joint disease of left hip: Status: Acute
[2021-12-17] MEDS: ceFAZolin 2 GM/50 ML BAG IVPB (07:36)
[2021-12-17] MEDS: fentaNYL 100 MCG/2 ML VIAL IVP ×2 (09:15→09:30)
--- NOTE | 2021-12-17 09:15 | W.PM.OP ---
Date of service: 12/17/21 Time of Service: 08:50 Operative Note Operative Note DATE OF PROCEDURE: 12/17/21 PRE-OP DIAGNOSIS: Hip Osteoarthritis POST-OP DIAGNOSIS: same PROCEDURE: Left Anterior Total Hip Arthroplasty with Intraoperative Navigation SURGEON: Kavon Peraza INSULATION FOREMAN: Cande Serrato ANESTHESIA TYPE: General LMA/ETT Refer to Anesthesia Record ESTIMATED BLOOD LOSS: 200 PATHOLOGY: none sent TOURNIQUET TIME: 0 COMPLICATIONS: None Patient was transported to: PACU Patient's condition: stable Implants: 1. Depuy [place]ee Acetabular Component, 50mm 2. Depuy Acetabular Liner, 02t67gi 3. Depuy Corail Coxa Vara Collared Femoral Stem, Size 12 4. Depuy Altrx Ceramic Femoral Head, Size 32+1mm Indications: I have seen Shi in clinic for symptoms of hip arthritis with worsening hip pain, confirmed with radiographic findings. Shi has exhausted nonoperative methods and was having significant limitations in daily function and desired better function and less pain. I discussed the technical details of a hip replacement. I explained the risks of the procedure to include, but not limited to, bleeding, infection, pain, stiffness, fracture, damage to nerves and vessels, damage to muscles and tendons, loosening, instability, leg length inequality, need for repeat procedure, blood clot and cardiopulmonary demise. Despite these risks, Shi elected to proceed. Findings: There was significant signs of arthritis throughout the hip mostly over the superior femoral head. Procedure Description: Shi was greeted in the preoperative holding area where the correct side was identified and marked. The consent was reviewed with the patient and signed. The history and physical was updated. All questions were answered. She was taken back to the operating room. A spinal anesthestic was then administered. The feet were wrapped with cast padding and Coban and then placed into the boot liners and then into the boots. Care was taken to protect the skin and make sure the heels were fully down and the boots were stable. The patient was then positioned onto the HANA table. Both legs were held in a neutral position. SCDs were applied. The patient was then slid down onto a peroneal post. Prophylactic antibiotics in the form of Cefazolin were administered. 1g of Tranxemic Acid was given intravenously within 30 minutes of incision. The left leg was then prepped with Chloraprep and draped in a standard fashion. A second prep with Chloraprep was performed prior to placement of a shower-curtain type drape with Iodine impregnated skin protection. A timeout to confirm correct identity, side and site, procedure, allergies, anesthesia, and medical concerns was performed. An obliquely oriented incision was made starting lateral to the ASIS and running distal over the Tensor Fascia Radha (TFL) muscle belly toward the fibular head, approximately 10cm. The skin and soft tissue was dissected sharply, through Aurelia?s fascia, and to the fascia of the TFL. With the fascia and superior border of the IT band identified, the fascia was incised with a new knife just above any perforators from the IT band. The TFL muscle belly was bluntly dissected away from the fascia and moved laterally. The fat between TFL and rectus was identified to ensure the dissection was not within the TFL. Blunt dissection created space between abductors and the capsule and retractor was placed over the lateral femoral neck. The fibers of the rectus femoris tendon were identified and these were freed from the anterior capsule. A second cobra retractor was placed around the medial femoral neck. The TFL was further retracted laterally to show the deep fascia. Careful dissection through this layer identified three main crossing vessels of the lateral femoral circumflex. These were cauterized in multiple locations and then cut without any noticeable bleeding. The TFL was further released bluntly from the deep fascia to expose anterior hip capsule and fat The Juan Manuel orthopaedic retractor was then placed beneath the TFL and against sartorius and medial soft tissues to protect and retract the soft tissues. A T-capsulotomy was then performed starting at the superior lateral acetabulum and moving distally to the intertrochanteric ridge. These capsular flaps were tagged with a No. 1 Ethibond and elevated from within. The capsular flaps were released to the shoulder of the lateral neck and to the lesser trochanter to give excellent visualization of the proximal femur. A neck osteotomy was performed using an oscillating saw based on preoperative templates. This cut started in the shoulder and of the lateral neck and exited medially. The saw was at all times directed medially to avoid injury to the greater trochanter. Gross traction was applied to the leg and the osteotomy opened. The femoral head was removed with a corkscrew, making sure to protect the TFL on its exit. Traction was released after head removal. This was measured on the back table to determine the starting reamer size. Portions of the rectus obscuring visualization were minimally elevated off the superior acetabulum. An anterior retractor was placed over the anterior wall between capsule and labrum and attached to the Gripper retraction system. The femur was rotated to 90 degrees and medial capsule was fully released until the lesser trochanter was palpable and visible; the femur was returned to 30 degrees. A posterior retractor was placed similarly between capsule and labrum. This provided excellent visualization. The contents of the cotyloid fossa were removed with electrocautery and the labrum was removed with a knife. There was some chondromalacia of the superior acetabulum. Acetabular reaming began with a 46mm reamer. This first reaming was directed anterior to posterior and medial to get down to the true floor. This was inspected and reamed until the true floor was reached. The anterior retractor was then released and entry and exit was provided by traction on the capsular flaps. I then reamed sequentially up to a 50mm reamer where good fit was obtained. The larger reamers were oriented based on anatomical reference of the anterior and lateral edwards to ensure proper abduction and anteversion. Positioning and size was confirmed with the fluoroscopy. A 50mm Depuy [place] acetabular component was selected. The deep tissues were irrigated. The acetabular component was then impacted in a position of about 40-45 degrees of abduction and 15-20 degrees of anteversion, using the patient?s anatomy as the ultimate landmark. Fluoroscopy was used to confirm this. There was excellent contact worker of the acetabular component and the inserting handle was removed. The acetabular liner, Depuy [id number] polyethylene liner, was inserted and lined up with the tines of the acetabular component. There was no soft tissue interposition. The liner was then impacted into position and confirmed to be well-seated. A portion of the james-articular cocktail was then injected around the acetabulum into the capsule and periosteum. This cocktail consisted of 123mg of Ropivacaine, 0.25mg of Epinephrine, 0.04mg of Clonidine, and 15mg of Ketorolac, diluted to 50cc. The leg was rotated to 120 degrees. Any remaining medial capsule was released until the lesser trochanter was easily palpable. A retractor was placed medially. The lateral capsule was further released into the shoulder to allow access to the greater trochanter. A Fisher retractor was placed over the greater trochanter which allowed the trochanter to flip in front of the capsule for excellent exposure. The leg was brought down into maximal extension and 20 degrees of adduction while ensuring there was no impingement on the acetabulum. Any remnant capsule within the trochanter was released. Piriformis and obturator externis were identified and protected. There was excellent access to the proximal femur. The lateral neck remnant was removed with a rongeur. A blunt canal probe was used to identify the canal and trajectory for later broaching. A box osteotome initiated the broach course. A small curved rasp and a curved curette were used to work laterally. Broaching then began with a size 8 Corail broach. This was inserted manually around the trochanter and into the canal before mallet blows. The broach was seated to a few millimeters below the cut level based on the neck cut and the preoperative template. Sequential broaching was continued with the [employer] pneumatic broaching device until a tight fit was obtained with good rotational control of the femur. A trial high offset neck was inserted along with a +1 trial head. The leg was brought out of extension and adduction and then reduced with traction and internal rotation. The leg was stable anteriorly in a position of 30 degrees of extension and 90 degrees of external rotation. Fluoroscopy was used to ensure there was no fracture and the stem was seated well. Leg lengths were checked with an AP pelvis and pelvic reference points. [employer] navigation system was used to confirm appropriate positioning and leg length and offset. There was appropriate recreation of offset but slightly over leg lengthening which would be appropriate with coxa vara. Once content with the desired offset and leg lengths, the leg was brought back into extension, external rotation and adduction. The periosteum and surrounding tissue was injected with remaining portion of the james-articular cocktail. The proximal femur was irrigated as well as the deep tissues. The Depuy Corail Coxa Vara collared stem, size 12, was then manually inserted into the proximal femur making sure to control rotation. It was then malleted into position with light blows, giving breaks to allow bone expansion and decrease risk of fracture. The selected Depuy Altrx Ceramic Head, size 32+1mm, was then placed onto the clean and dry trunnion and secured with impaction onto the tapered fit. The leg was brought back out of extension and adduction and reduced with traction and internal rotation. Stability was confirmed with no shuck at 90 degrees of external rotation and 30 degrees of extension. No impingement through range of motion arc. Final x-ray images were obtained with fluoroscopy to confirm adequate positioning and no intraoperative fracture. The deep tissues were thoroughly irrigated with Surgiphor, betadine solution. This was allowed to sit in the wound for 3 minutes before being thoroughly irrigated out with normal saline. The capsule was then reapproximated with the previously placed Ethibond sutures. The TFL fascia was finally closed with a No. 2 Stratafix, barbed suture. Deep tissues were then reapproximated with 0 Vicryl and a running 2-0 Vicryl. The skin was closed with a running 4-0 Monocryl in a subcuticular fashion. This was reinforced with skin glue. A Mepilex silver dressing was applied. At the end of the case, all counts were correct. Shi was transferred to the hospital bed without difficulty and suffering no apparent complication. Shi has a good prognosis. Physical therapy will start today and without restrictions, weight-bearing as tolerated. Aspirin 81mg BID will be used for DVT prophylaxis.
[2021-12-17] MEDS: HYDROmorphone 2 MG/ML VIAL IVP (09:20)
[2021-12-17] MEDS: Normal Saline 10 ML VIAL IJ (09:39)
[2021-12-17] MEDS: oxyCODONE 5 MG TAB PO (10:45)
--- NOTE | 2021-12-17 11:23 | PT.INIE ---
Date of service: 12/17/21 Time of Service: 11:23 PT Notes Visit Reasons: Left [facility] Physical Therapy Day Surgery Initial Evaluation Date: 12/17/2021 Referring Doctor: SHAGUFTA Dill PT Orders: PT CONSULT: S/P Ortho surgery Precautions: WBAT on left LE with AD. Patient Profile/Admitting Diagnosis: Shi is a 76-year-old female with degenerative joint disease of the left hip status left anterior total hip arthroplasty on postoperative day 0. PMHX: Medical History? Alcohol intake above recommended sensible limits Calcific shoulder tendinitis Calcific tendinitis of shoulder left shoulder MRI: labral tear ; bursal surface tear Colon polyps Diaphragm dysfunction Diarrhea Disorder of diaphragm right elevated hemidiaphragm Diverticulosis 07/22/15; MILD; DR. 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 History of bladder repair surgery Bladder tuck 80's-90's for tilted uterus History of colonoscopy Status post arthroscopy of right shoulder Extensive debridement of anterior/posterior glenohumeral joint and RTC, subacromial debridement with acromioplasty, biceps tenotomy DOS: 07/28/18 Dr. Peraza Status post debridement 07/28/18 EXTENSIVE DEBRIDEMENT OF ANTERIOR AN Social History/Home Situation: Lives alone in a private home with 5 steps to enter with rails on both sides that are far apart. She has another flight of steps to her bedroom with a rail on the left going up. Independent with all aspects of Adls prior to surgery. Equipment Owned/DME: [facility] Subjective: Complains of tightness in the front and side of her L hip at rest. reports 4/10 pain in the same area. Denies vertigo, chest pain, and headache throughotu session. Objective: General Observation: Supine in bed. Mepilex Ag over surgical incision. IV access in right daily. TEDS and B legs. Mental Status: Alert and oriented x 4 Pain: 4/10 pain in the left hip at rest ROM: Right Lower Extremity: Hip flexion WFL. Hip abduction WFL. Knee flexion WFL. Ankle dorsiflexion WFL. Ankle plantarflexion WFL. Left Lower Extremity: Hip flexion lacks the last 25% of AROM. Hip abduction WFL. Knee flexion WFL. Ankle dorsiflexion to neutral only. Ankle plantarflexion WFL. Strength: Right Lower Extremity: Hip flexors 5/5. Hip abductors 5/5. Knee flexors 5/5. Knee extensors 5/5. Ankle dorsiflexors 5/5. Ankle plantarflexors 5/5. Left Lower Extremity:Hip flexors 3-/5. Hip abductors 4/5. Knee flexors 4/5. Knee extensors 4/5. Ankle dorsiflexors 3-/5. Ankle plantarflexors 5/5. Sensation: Denies numbness and tingling in B LE Bed Mobility/Transfers: Supine to sit standby assist Sit to stand guard assist Stand to sit standby assist Bed to chair standby assist Gait: Instructed patient with level surface ambulation using front wheel walker for 250 feet with standby assist, step-to gait pattern. Reported decreased tightness and discomfort in the left hip at end of activity. No loss of balance. Stairs: Balance: Static Sitting: Normal Dynamic Sitting: Normal Static Standing: Fair Dynamic Standing: Fair Special Tests: Mobility Limitations Standardized Measure [facility] AM-PAC 6 clicks Basic Mobility Inpatient Short Form: Raw Score: 20 CMS Score: 36% deficit Informed Consent/Education: Patient instructed in purpose of PT consult. Education and training on initial set of exercises that can be done at home have been completed with patient with reference to the [employer] nancy. Assessment: Shi requires the use of a front-wheeled walker for all mobility ADL performance to maximize independence and reduce fall risk. Crampy/achy feeling in the L hip subsided with weight bearing/movement. Patient presents with clinical signs and symptoms consistent with current/admitting diagnoses that have resulted to mobility limitations and gait instability as demonstrated by the following impairment level findings: 1. Decreased strength to left hip major muscle groups 2. Impaired standing balance 3. Limitation of joint range of motion in left hip Impairments are contributing to the following functional limitations: 1. Inability to safely ambulate without assistive device 2. Increase completion time for mobility ADL performance 3. Increased fall risk Patient is assessed as a 98213 moderate complexity based on the following: History: 76-year-old female with impairment level findings, functional limitations, and past medical history as indicated above Examination: Demonstrable impairment in strength, balance, and mobility level with underlying impairments and functional limitations as documented above Presentation: Evolving Decision Makin moderate complexity Goals: N/A. PT evaluation and 1-2 treatment sessions only for functional mobility training using recommended AD and for HEP instruction. Plan of Care/Treatment Plan: N/A. PT evaluation and 1-2 treatment session only for functional mobility training using recommended AD and for HEP instruction. DISCHARGE RECOMMENDATIONS: [] Home with no services [] [] Home with services [specify] [X] Home with outpatient PT. Home when medically cleared by orthopedic surgeon. Will benefit from outpatient PT services in order to facilitate return to independent community ambulation and ADLs without an assistive device. [] SNF for continued rehabilitation [] [] [facility] [] [] SNF versus LTC based on ability to participate and progress [] TREATMENT CODE/TIME: 25214 x 20 minutes, 44111 x 24 minutes beginning at 11:23 AM. Thank you for the opportunity to participate in the care of this patient. Caryl Ny PT, DPT, CLT [facility] [place], [place]
--- NOTE | 2021-12-17 13:24 | W.ANESPOSTOP ---
Postoperative Evaluation Date, Time and Location Date Performed: 12/17/21 Time Performed: 13:05 Patient Location: Day Surgery Unit Vital Signs Most Recent Imported Vital Signs: Most Recent Vital Signs Temp Pulse Resp BP Pulse Ox 35.8 C L 62 16 117/65 95 12/17/21 11:10 12/17/21 11:10 12/17/21 11:10 12/17/21 11:10 12/17/21 11:10 Pain Score Most Recent Pain Score: Most Recent Pain Score Pain Level [Left Hip] 4 12/17/21 11:10 Pain Level 4 12/17/21 11:10 Assessment Mental Status: Awake (Alert & Oriented to Patient Baseline) Airway and Respiratory Function: Patent airway with normal (patient baseline) respiratory exam Cardiovascular Function: Hemodynamically Stable Hydration Status: Adequately Hydrated Nausea & Vomiting: No Nausea or Vomiting Pain: Pain is tolerable per patient Peripheral Nerve Block: Patient did not receive a nerve block
== END 2021-12-17 13:07 | disposition home or self-care (01) ==
PROVIDERS: PCP Family Medicine; Visit Provider Student in an Organized Health Care Education/Training Program
PROC: (CPT 27130; principal; 2021-12-17 07:30)
DX: M16.12 Unilateral primary osteoarthritis, left hip (principal); I10 Essential (primary) hypertension; E78.00 Pure hypercholesterolemia, unspecified
CPT/HCPCS: 20985; 27130; C1776; 97162; 97530; 73501; J0690; J2250; J2405; J3010

== ENCOUNTER 2022-01-01 13:32 | Outpatient (CLI) | payer MEDICARE, BC, SELFPAY ==
--- NOTE | 2022-01-01 10:30 | DI.RAD_ITS ---
Exam(s) XR HIP LT COMPLETE AP PELVIS EXAM: XR HIP LT COMPLETE AP PELVIS INDICATION: 1ST POST OP L [facility]THA. COMPARISON: CR XR PELVIS AP from 12/11/2021 XA XR HIP LT IN OR from 12/17/2021 TECHNIQUE: 2D digital imaging was performed. Two views. FINDINGS: There has been no change in the alignment of the left hip prosthesis or appearance of the surroundin g bone. Degenerative changes are again noted in the right hip. DATA REPOSITORY: RADIATION DOSE DELIVERED:
== END 2022-01-01 13:33 | disposition home or self-care (01) ==
LOC: DIORS 13:33
PROVIDERS: PCP Family Medicine; Referring Provider Family Medicine; Visit Provider Physician Assistant Surgical
DX: Z96.642 Presence of left artificial hip joint (principal); Z47.1 Aftercare following joint replacement surgery
CPT/HCPCS: 73502

== ENCOUNTER → 2022-01-29 10:22 | Outpatient (BNVA) | payer MEDICARE, BC, SELFPAY | PROVIDERS: PCP Family Medicine; Referring Provider Family Medicine; Visit Provider Student in an Organized Health Care Education/Training Program | DX: Z47.1 Aftercare following joint replacement surgery (principal); Z96.642 Presence of left artificial hip joint; M22.2X2 Patellofemoral disorders, left knee ==

== ENCOUNTER → 2022-02-10 02:39 | Outpatient (CLI) | payer MEDICARE, BC, SELFPAY ==
--- NOTE | 2022-02-10 07:30 | DI.MAMMO_ITS ---
Exam(s) MAMMO SCREENING EXAM: MAMMO SCREENING CLINICAL HISTORY: screening,Z12.39 TECHNIQUE: Bilateral full field digital CC and MLO mammographic images were obtained with 3D tomosyn thesis and utilizing computer aided detection (CAD). COMPARISON: Available for comparison. FINDINGS: Masses/Architectural Distortion: None seen. Microcalcifications: No suspicious pleomorphic-type are seen. Skin Thickening/Nipple Retraction: None. IMPRESSION: 1. No significant interval change with no specific features of malignancy noted. 2. Unless there is more urgent need, screening mammography is recommended, as per [employer] guidelines. BI-RADS Category 1 - Negative Breast Density - Category B - Scattered areas of fibroglandular density Breast density category C or D implies that the patient has dense breast tissue. Dense breast tissue is very common and is not abnormal but dense breast tissue can make it harder to find cancer on a ma mmogram. Also, dense breast tissue may increase their breast cancer risk. This information about the result of the mammogram report was provided to the patient to raise their awareness. Use this report when you speak with the patient about their risks for breast cancer, which includes their family hist ory. At that time, you may recommend for more screening tests (Ultrasound or MRI) as they might be us eful based on their risk. A negative radiographic report should not delay biopsy if a dominant or clinically suspicious mass is present. Up to ten percent of cancers are not identified on mammography. A negative report may reinforce clinical impression. Adenosis and dense breasts may obscure an underlying neoplasm. False positive reports average 6 to 10%. Patient will receive a letter notifying them of these results.
== END ==
PROVIDERS: PCP Family Medicine; Visit Provider Family Medicine
DX: Z12.31 Encounter for screening mammogram for malignant neoplasm of breast (principal)
CPT/HCPCS: 77063; 77067

== ENCOUNTER → 2022-03-12 10:05 | Outpatient (BNVA) | payer MEDICARE, BC, SELFPAY | PROVIDERS: PCP Family Medicine; Referring Provider Family Medicine; Visit Provider Student in an Organized Health Care Education/Training Program | DX: Z47.1 Aftercare following joint replacement surgery (principal); Z96.642 Presence of left artificial hip joint ==

== ENCOUNTER 2022-12-10 10:04 | Outpatient (CLI) | payer MEDICARE, BC, SELFPAY ==
--- NOTE | 2022-12-10 09:15 | DI.RAD_ITS ---
Exam(s) XR HIP LT AP LAT ONLY EXAM: XR HIP LT AP LAT ONLY CLINICAL HISTORY: annual f/u L MARTHA. TECHNIQUE: 2D digital imaging was performed. COMPARISON: CR XR HIP LT COMPLETE AP PELVIS from 01/01/2022 FINDINGS: Two views: There is stable position alignment of the components of the prosthesis in the left hip. No fracture or loosening evident. No radiographic evidence of osteomyelitis IMPRESSION: Stable satisfactory appearance of the left hip prosthesis. DATA REPOSITORY: RADIATION DOSE DELIVERED:
== END 2022-12-10 10:05 | disposition home or self-care (01) ==
LOC: DIORS 10:05
PROVIDERS: PCP Family Medicine; Referring Provider Family Medicine; Visit Provider Student in an Organized Health Care Education/Training Program
DX: Z96.642 Presence of left artificial hip joint (principal); S76.912A Strain of unspecified muscles, fascia and tendons at thigh level, left thigh, initial encounter; X58.XXXA Exposure to other specified factors, initial encounter
CPT/HCPCS: 99213; 73502

== ENCOUNTER 2023-01-07 08:25 | Outpatient (CLI) | payer MEDICARE, BC, SELFPAY ==
[2023-01-07 08:21] LABS: Abs Immature Grans 0.01 10^3/uL (0.0-0.06); Absolute Basophil Count 0.06 10^3/uL (0.0-0.2); Absolute Lymphocyte Count 1.94 10^3/uL (1.2-3.4); Absolute Monocyte Count 0.74 10^3/uL (0.1-0.8); Absolute Neutrophil Count 3.71 10^3/uL (1.2-6.7); Basophils % 0.9; Eosinophils % 1.5; HCT 37.8 % (36.0-46.0); HGB 13.2 g/dL (11.2-15.7); Immature Grans % 0.2; Lymphocytes % 29.6; MCH 32.7 pg (27.0-33.0); MCHC 34.9 % (32.0-36.0); MCV 94 fL (80-95); MPV 9.7 fL (8.0-11.0); Monocytes % 11.3; Neutrophils % 56.5; Platelet Count 253 10^3/uL (130-400); RBC 4.04 10^6/uL (3.93-5.22); RDW 11.9 % (11.7-14.6); RDW-SD 41.7 fL; WBC 6.56 10^3/uL (4.4-10.8)
[2023-01-07 09:07] LABS: ALT 19 U/L (14-59); AST 23 U/L (15-37); Albumin 3.9 g/dL (3.4-5.0); Alkaline Phosphatase 54 U/L (46-116); Anion Gap 9.6 mmol/L (3-11); BUN 10 mg/dL (7-18); Bilirubin, Total 0.8 mg/dL (0.2-1.0); CO2 28.4 mmol/L (21.0-32.0); CREATININE 0.8 mg/dL (0.55-1.02); Calcium 9.3 mg/dL (8.5-10.1); Chloride 97 mmol/L (98-107); Estimated GFR 76.79 (mL/min/1.73m2); Glucose 96 mg/dL (74-106); Potassium 3.3 mmol/L (3.5-5.1); Sodium 135 mmol/L (136-145); Uric Acid 3.1 mg/dL (2.6-6.0)
== END 2023-01-07 08:26 | disposition home or self-care (01) ==
LOC: LBO 08:30
PROVIDERS: PCP Family Medicine; Visit Provider Nurse Practitioner Family
DX: I10 Essential (primary) hypertension (principal); M79.674 Pain in right toe(s)
CPT/HCPCS: 36415; 80053; 84550; 85025

== ENCOUNTER → 2023-04-16 09:06 | Outpatient (BNVA) | payer MEDICARE, BC, SELFPAY | PROVIDERS: PCP Family Medicine; Referring Provider Family Medicine; Visit Provider Student in an Organized Health Care Education/Training Program | DX: S76.912D Strain of unspecified muscles, fascia and tendons at thigh level, left thigh, subsequent encounter (principal); S76.812D Strain of other specified muscles, fascia and tendons at thigh level, left thigh, subsequent encounter; X58.XXXD Exposure to other specified factors, subsequent encounter | CPT/HCPCS: 99213 ==

== ENCOUNTER → 2023-04-22 10:08 | Outpatient (BNVA) | payer MEDICARE, BC, SELFPAY | PROVIDERS: PCP Family Medicine; Referring Provider Family Medicine; Visit Provider Physical Therapy Assistant | DX: Z12.11 Encounter for screening for malignant neoplasm of colon (principal); Z86.010 Personal history of colon polyps ==

== ENCOUNTER 2023-05-03 10:00 | Day surgery (SDC) | payer MEDICARE, BC, SELFPAY ==
--- NOTE | 2023-05-02 19:59 | PDOC.DSDIS_ITS ---
Date of service: 05/03/23 Time of Service: 13:11 Discharge Plan Disposition Patient Disposition: Home Condition: Good Discharge Details Reason For Visit: Screening colonoscopy Attending Provider: Roberto Zamora Primary Care Provider: Scarlet Wallace Home Meds and New Rx's Prescriptions: Continued Shingrix (PF) 50 mcg/0.5 mL suspension for reconstitution 0.5 ml IM ONCE Qty: 1 1RF Rx Instructions: as a single dose. Repeat in 2 months magnesium oxide 400 mg magnesium capsule 150 mg PO DAILY cholecalciferol (vitamin D3) 50 mcg (2,000 unit) capsule 2,000 unit PO DAILY amlodipine 5 mg tablet 5 mg PO DAILY cyanocobalamin (vitamin B-12) [Vitamin B-12] 1,000 MCG tablet extended release 1,000 mcg PO DAILY losartan-hydrochlorothiazide 100-12.5 mg tablet 1 tab PO DAILY Qty: 90 4RF potassium chloride 20 mEq tablet extended release 20 meq PO DAILY Qty: 90 5RF acetaminophen 500 mg capsule 1,000 mg PO Q8H PRN PRNQty: 90 0RF Discontinued bisacodyl [Dulcolax (bisacodyl)] 5 mg tablet,delayed release (DR/EC) 5 mg PO ONCE Qty: 4 0RF Rx Instructions: Take per colonoscopy instructions provided by ordering providers office polyethylene glycol 3350 17 gram/dose powder 17 g PO ONCE Qty: 238 0RF Rx Instructions: Take per colonoscopy instructions provided by ordering providers office Discharge Instructions Instructions: Diverticulosis (GEN), Colorectal Polyps (GEN), Diverticulosis Diet (GEN) Additional Instructions: Shi, we were able to complete your colonoscopy today without any difficulty. I did find 1 single polyp. It was quite small. I removed it completely. I will be in touch when I have the results of the polyp report with recomme ndations for your next colonoscopy. Incidentally, he also have a little bit of diverticulosis. Have attached some information here regarding general management of diverticular disease. 1. If tolerated, consume a soft, low fiber diet for 1-2 days. 2[address] Do not drive, drink alcohol, operate machinery, make critical decisions, or do activities that require coordination or balance for 24 hours. 3. Because air was put into your colon during the procedure, expelling air from your rectum (passing gas or farting) is normal. 4. You may not have a bowel movement for 1-3 days because of the colonoscopy prep. This is normal. 5. Go directly to the emergency room if you notice any of the following: Develop chills (warm to touch), or if you have a thermometer and your temperature is above 101 Difficulty breathing or difficultly swallowing Persistent vomiting Severe abdominal pain, other than gas cramps Severe chest pain Black, tarry stools Any bleeding ? exceeding one tablespoon 6. Call your physician if the site where your intravenous was started becomes red, swollen, painful, and warm to touch. 7. Your physician has reviewed your pre-procedure medications. Please continue to take those medications as previously ordered. You will be given specific information/education regarding any changes to your medications before leaving. Activity:: Activity as Tolerated Diet:: As Tolerated Discharge Orders Discharge Orders: Discharge Order (Routine); Ordered 05/02/23 Ordered By: Roberto Zamora DS: Diagnosis Discharge Diagnosis (1) Screen for colon cancer: Status: Acute Asessment and Plan: Follow-up on polypectomy results
--- NOTE | 2023-05-02 20:01 | W.COLOREPORT ---
Date of service: 05/03/23 Time of Service: 13:12 Colonoscopy Report Date of procedure: 05/03/23 Pre-op diagnosis general: screening colonoscopy Post-op diagnosis procedure note: other (Cecal polyp, diverticulosis) Procedure: Colonoscopy with polypectomy Surgeon: Roberto Zamora Anesthesia Type: General:No Airway Estimated blood loss (mL): 5 Pathology: other (0.25 cm cecal polyp) Complications: None Disposition: same day Indications: Shi is a 77 year old woman with tubular adenoma detected on previous colonoscopy. She is undergoing her next screening colonoscopy. Prep: Miralax/Dulcolax Procedure Start Time: 12:39 Procedure End Time: 12:56 Retraction Time: 9 Findings: Occasional sigmoid diverticulosis, cecal polyp Procedure Description: After the induction of monitored anesthetic care, and with the patient in left lateral decubitus position, I began by performing an external anorectal exam.? Perineum and skin were normal, as was the anal verge.? There was no evidence of external hemorrhoids.? Next, I performed a digital rectal exam.? I did not appreciate any abnormal findings.? Next, I advanced a colonoscope into the rectal vault.? I performed retroflexion.? This appeared normal.? Using insufflation, I then advanced the colonoscope beyond the rectal folds and into the sigmoid colon before advancing towards the cecum.? The scope was noted to be in the cecum by identification of the ileocecal valve and appendiceal orifice.?Within the cecum, just a few centimeters away from the appendiceal orifice was a 0.25 cm sessile cecal polyp. I removed this with cold forceps. There was minimal bleeding.? I then began withdrawing the colonoscope using repeated irrigation as necessary for full evaluation of the colonic mucosa. There was some sigmoid diverticulosis. ?Once the scope was withdrawn to the level of the rectum, great care was taken to examine portions of the rectal folds.? The quality of the prep according to the [place] prep score was 3, 3, 3 from right to left. finally, the scope was withdrawn and the patient was brought to the same-day surgery recovery unit as the anesthetic wore off. ?The findings and instructions were shared with the patient prior to discharge.
[2023-05-03 11:00] VITALS: BP 151/73; PULSE 69; RESP 18; TEMP 36.2; O2SAT 99
[2023-05-03] MEDS: Lactated Ringers 1,000 ML 80 ML IV (11:30)
--- NOTE | 2023-05-03 12:21 | W.ANESPRE ---
General Info Date of Service Date Performed: 05/03/23 Height: 5 ft 3 in Weight: 62.3 kg Body Mass Index (BMI): 24.3 Surgical Procedure: Operation Date: 05/03/23 13:35 Proposed Procedure Side Surgeon anjana Zamora MD Meds Allergies and Home Medications Allergies Allergy/AdvReac Type Severity Reaction Status Date / Time Penicillins Allergy Mild Skin Rash Verified 05/03/23 10:59 Home Medication Medication Instructions Recorded cyanocobalamin (vitamin B-12) 1,000 mcg PO DAILY 02/09/13 1,000 mcg tablet,extended release (Vitamin B-12 ER) acetaminophen 500 mg capsule 1,000 mg (2 x 500 mg) PO Q8H PRN 12/17/21 PRN #90 caps losartan 100 1 tab PO DAILY #90 tab-caps 08/04/22 mg-hydrochlorothiazide 12.5 mg tablet potassium chloride 20 mEq 20 meq PO DAILY #90 tabs 01/07/23 tablet,extended release varicella-zoster glycoE [id number] 0.5 ml IM ONCE #1 ea 02/09/23 adj(PF) 50 mcg/0.5 mL IM susp, kit (Shingrix (PF)) amlodipine 5 mg tablet 5 mg PO DAILY 04/22/23 cholecalciferol (vitamin D3) 50 2,000 unit PO DAILY 04/22/23 mcg (2,000 unit) capsule magnesium oxide 150 mg PO DAILY 04/22/23 Current Visit Medications: Current Medications Generic Name Dose Route Start Last Admin Trade Name Freq PRN Reason Stop Dose Admin Hyoscyamine Sulfate 0.125 mg 05/02/23 20:02 Hyoscyamine 0.125 Mg Sl/Oral/Chew SL 06/01/23 20:01 DIRECTED PRN Ringer's Solution 1,000 mls @ 80 mls/hr 05/03/23 06:00 05/03/23 11:30 IV 05/30/23 23:59 80 mls/hr INFUSION BRETT Administration IV Miscellaneous Supplies 1 each 05/03/23 06:00 Iv Access IV 05/30/23 23:59 DIRECTED BRETT Ondansetron HCl 4 mg 05/02/23 20:02 Ondansetron 4 Mg/2 Ml Vial IVP 06/01/23 20:01 Q4H PRN PRN Nausea / Vomiting Sodium Chloride 0 ml 05/03/23 06:00 Normal Saline Flush 10 Ml Syr IV 05/30/23 23:59 PRN PRN Sodium Chloride 0 ml 05/03/23 06:00 Normal Saline 10 Ml Vial IJ 05/30/23 23:59 DIRECTED PRN Sterile Water 0 ml 05/03/23 06:00 Water,Injection,Sterile 10 Ml Vial IJ 05/30/23 23:59 DIRECTED PRN PFSH Active Problems Active Problems: Problem Status Onset Code Screen for colon cancer Z12.11 Strain of rectus femoris muscle S76.819A Hypokalemia E87.6 Ear lesion H93.90 Pain of right great toe M79.674 Strain of left iliopsoas muscle S76.912A Influenza A J10.1 Patellofemoral syndrome, left M22.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 History of total left hip replacement 12/17/21 Z96.642 Osteoporosis M81.0 Degenerative joint disease of right hip M16.11 Acute shoulder bursitis M75.50 Lateral epicondylitis M77.10 Facial lesion L98.9 Muscle spasm M62.838 Referred otalgia of both ears H92.03 Chronic left ear pain H92.02, G89.29 Abnormal ultrasound of pelvis R93.89 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 Foraminal stenosis of lumbosacral region M48.07 Spondylolisthesis at L4-L5 level M43.16 Spinal stenosis at L4-L5 level M48.061 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 Rotator cuff tear arthropathy 10/16/14 M75.100, M12.819 Onychomycosis B35.1 Numbness of hand R20.0 Hypercholesterolemia E78.00 Essential hypertension 06/23/13 I10 Diverticulosis K57.90 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 unaware Surgical History Surgical History History of back surgery L3,4,4-5. History of colonoscopy History of bladder repair surgery Bladder tuck 80's-90's for tilted uterus Status post arthroscopy of right shoulder Extensive debridement of anterior/posterior glenohumeral joint and RTC, subacromial debridement with acromioplasty, biceps tenotomy DOS: 07/28/18 Dr. Hansen Status post debridement 07/28/18 EXTENSIVE DEBRIDEMENT OF ANTERIOR AND POSTERIOR GLENOHUMERAL JOINT AND ROTATOR CUFF; SUBACROMIAL DEBRIDEMENT WITH ACROMIOPLASTY; DR. HANSEN Tobacco Smoking/Tobacco Use Status: Former Tobacco Use Passive smoking exposure: Yes Second hand exposure: Yes Alcohol Alcohol Intake: current Alcohol intake frequency: 0-2 drinks per day Alcohol type: wine Substance Use Substance use: Never Substance use type: marijuana Details: alcohol: t-2, 2 glasses Vital Signs and Lab Results Vital Signs Most Recent Vital Signs in EMR: Most Recent Vital Signs Temp Pulse Resp BP Pulse Ox 36.2 C L 69 18 151/73 H 99 05/03/23 11:00 05/03/23 11:00 05/03/23 11:00 05/03/23 11:00 05/03/23 11:00 Lab Results Blood Type / Crossmatch: No Data to Display Complete Blood Count: No Data to Display Complete Metabolic Panel: No Data to Display Liver Function Panel: No Data to Display Coagulation Panel: No Data to Display Cardiac Panel: No Data to Display Arterial Blood Gas: No Data to Display Venous Blood Gas: No Data to Display Pancreas Panel: No Data to Display Thyroid Panel: No Data to Display Infectious Disease: No Data to Display Blood Cultures: No Data to Display Toxicology Panel: No Data to Display Anesthesia Assessment and Plan Anesthesia History Personal History: No History of Anesthesia Complications Family History: No Family History of Anesthesia Complications Exercise Tolerance Exercise Tolerance: Metabolic Equivalents>4 Pertinent Negatives Pertinent Negatives: No Symptoms of GERD, No Major Cardiovascular Symptoms or Complaints and No Major Pulmonary Symptoms or Complaints Cardiac & Pulmonary Exam Cardiac Exam: Normal S1/S2 Heart Sounds Pulmonary Exam: Clear Bilateral Breath Sounds Implantable Cardiac Device Does patient have a Pacemaker or an ICD?: No Airway Exam Known Difficult Airway: No Mallampati Class: 2 Mouth Opening: Normal (> 3cm) Thyromental Distance: Greater than 3 cm Neck Range of Motion: Full ROM Neck Circumference: Normal Teeth Condition: Normal Dentition and Removable Dentures/Plates Upper ASA Classification ASA Score: ASA 2 Emergency Case?: No NPO Status NPO Status: NPO Clears >2 hours, Solids >8 hours Anesthesia Plan Resuscitation Status: Full Code Anesthesia Technique: General Anesthesia Airway Planned: Natural Airway Monitors Used: Standard Monitors
[2023-05-03 12:24] VITALS: BMI 24.3
--- NOTE | 2023-05-03 12:50 | BOWEL_PTH ---
PATIENT: Shi Shin LOC: [facility] U#:[id number] AGE/SX: 77/F ROOM: RE05/03/[address]: Roberto Zamora MD : 1945 BED: DIS: 05/03/2023 SPEC #: [id number] RECD: 05/03/23 13:21 STATUS: JUSTIN REQ #: [id number] BELLO: 05/03/23 12:[address]: Roberto Zamora DEPT: Surgical Specimen RECD BY: Kayy Yanez ENTERED: 05/03/23 13:21 SP TYPE: Bowel OTHR DR: Scarlet Wallace MD, DC Tissues: 1 - BIOPSY BOWEL Procedures: GROSS AND MICRO LEVEL 4 Comments: [id number]
[2023-05-03 13:03] VITALS: BP 130/70; PULSE 69; RESP 18; TEMP 36.2; O2SAT 100
--- NOTE | 2023-05-03 13:20 | W.ANESPOSTOP ---
Postoperative Evaluation Date, Time and Location Date Performed: 05/03/23 Time Performed: 13:12 Patient Location: Day Surgery Unit Vital Signs Most Recent Imported Vital Signs: Most Recent Vital Signs Temp Pulse Resp BP Pulse Ox 36.2 C L 69 18 130/70 100 05/03/23 13:03 05/03/23 13:03 05/03/23 13:03 05/03/23 13:03 05/03/23 13:03 Pain Score Most Recent Pain Score: Most Recent Pain Score Pain Level 0 05/03/23 13:03 Assessment Mental Status: Awake (Alert & Oriented to Patient Baseline) Airway and Respiratory Function: Patent airway with normal (patient baseline) respiratory exam Cardiovascular Function: Hemodynamically Stable Hydration Status: Adequately Hydrated Nausea & Vomiting: No Nausea or Vomiting Pain: Pt. Denies Any Pain Peripheral Nerve Block: Patient did not receive a nerve block
[2023-05-03 13:25] VITALS: BP 133/76; PULSE 75; RESP 18; TEMP 36.5; O2SAT 100
== END 2023-05-03 13:34 | disposition home or self-care (01) ==
LOC: SUR 10:01
PROVIDERS: PCP Family Medicine; Visit Provider Surgery
PROC: 0DJD8ZZ Inspection of Lower Intestinal Tract, Via Natural or Artificial Opening Endoscopic (ICD-10-PCS; CPT 45378; principal; 2023-05-03 13:30)
DX: Z12.11 Encounter for screening for malignant neoplasm of colon (principal); D12.0 Benign neoplasm of cecum; K57.30 Diverticulosis of large intestine without perforation or abscess without bleeding
CPT/HCPCS: 45380; 88305

== ENCOUNTER 2023-05-28 01:58 | Outpatient (CLI) | payer MEDICARE, BC, SELFPAY ==
[2023-05-28 12:21] LABS: Anion Gap 9.4 mmol/L (3-11); BUN 6 mg/dL (7-18); CO2 27.6 mmol/L (21.0-32.0); CREATININE 0.7 mg/dL (0.55-1.02); Calcium 9.3 mg/dL (8.5-10.1); Chloride 99 mmol/L (98-107); Estimated GFR 90.14 (mL/min/1.73m2); Glucose 94 mg/dL (74-106); Magnesium 2.1 mg/dL (1.8-2.4); Potassium 3.6 mmol/L (3.5-5.1); Sodium 136 mmol/L (136-145)
== END 2023-05-28 01:59 | disposition home or self-care (01) ==
LOC: LOS 01:59
PROVIDERS: PCP Family Medicine; Visit Provider Family Medicine
DX: E87.6 Hypokalemia (principal); I10 Essential (primary) hypertension
CPT/HCPCS: 36415; 80048; 83735

== ENCOUNTER → 2023-07-16 08:24 | Outpatient (BNVA) | payer MEDICARE, BC, SELFPAY | PROVIDERS: PCP Family Medicine; Visit Provider Student in an Organized Health Care Education/Training Program | DX: S76.812D Strain of other specified muscles, fascia and tendons at thigh level, left thigh, subsequent encounter (principal); X58.XXXD Exposure to other specified factors, subsequent encounter | CPT/HCPCS: 99213 ==

== ENCOUNTER 2024-03-16 11:42 | Outpatient (CLI) | payer MEDICARE, BC, SELFPAY ==
[2024-03-16 13:28] LABS: ALT 20 U/L (14-59); AST 23 U/L (15-37); Albumin 3.8 g/dL (3.4-5.0); Alkaline Phosphatase 49 U/L (46-116); Anion Gap 11.5 mmol/L (3-11); BUN 10 mg/dL (7-18); Bilirubin, Total 0.75 mg/dL (0.2-1.0); CO2 26.5 mmol/L (21.0-32.0); CREATININE 0.7 mg/dL (0.55-1.02); Calcium 9.2 mg/dL (8.5-10.1); Chloride 100 mmol/L (98-107); Cholesterol 283 mg/dL (<200); Estimated GFR 89.58 (mL/min/1.73m2); Glucose 96 mg/dL (74-106); Potassium 3.7 mmol/L (3.5-5.1); Sodium 138 mmol/L (136-145); Total Protein 7.6 g/dL (6.4-8.2); Triglyceride 67 mg/dL (<150)
[2024-03-16 13:30] LABS: Calculated LDL 113 mg/dL (<100); HDL Cholesterol 157 mg/dL (40-60)
== END 2024-03-16 11:43 | disposition home or self-care (01) ==
LOC: LOS 11:42
PROVIDERS: PCP Family Medicine; Referring Provider Family Medicine; Visit Provider Family Medicine
DX: I10 Essential (primary) hypertension (principal); Z11.9 Encounter for screening for infectious and parasitic diseases, unspecified
CPT/HCPCS: 36415; 80053; 80061

== ENCOUNTER 2024-05-01 02:17 | Outpatient (CLI) | payer MEDICARE, BC, SELFPAY ==
[2024-05-02 12:13] LABS: Hepatitis C Ab w Rflx HCV PCR Negative (Negative)
== END 2024-05-01 02:18 | disposition home or self-care (01) ==
LOC: LOS 02:18
PROVIDERS: PCP Family Medicine; Visit Provider Family Medicine
DX: Z11.9 Encounter for screening for infectious and parasitic diseases, unspecified (principal); Z00.00 Encounter for general adult medical examination without abnormal findings
CPT/HCPCS: 36415; 86803

== ENCOUNTER 2024-05-15 15:26 | Outpatient (CLI) | payer MEDICARE, BC, SELFPAY ==
--- NOTE | 2024-05-15 11:26 | DI.RAD_ITS ---
Exam(s) XR HIP RT COMPLETE AP PELVIS EXAM: XR HIP RT COMPLETE AP PELVIS CLINICAL HISTORY: RIGHT HIP PAIN. TECHNIQUE: 2D digital imaging was performed of the right hip. Two images were obtained. AP pelvis a nd lateral right hip views were obtained. COMPARISON: CR XR HIP LT COMPLETE AP PELVIS from 01/01/2022 FINDINGS: BONES: No acute fracture is present. No bony destructive lesion is seen. JOINTS: No dislocation present. There is again seen moderate narrowing of the right hip joint space. There is also again seen a large osteophyte arising from the superior acetabulum. There is mild spu rring seen of the greater trochanter. Note is made of a stable left total hip replacement. The sacr oiliac joints and symphysis pubis are intact. SOFT TISSUE: Normal. IMPRESSION: 1. 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 2. Left total hip replacement. DATA REPOSITORY: RADIATION DOSE DELIVERED:
== END 2024-05-15 15:27 | disposition home or self-care (01) ==
LOC: DIORS 15:27
PROVIDERS: PCP Family Medicine; Referring Provider Family Medicine; Visit Provider Physician Assistant
DX: M16.11 Unilateral primary osteoarthritis, right hip; M70.61 Trochanteric bursitis, right hip
CPT/HCPCS: 99213; 73502

== ENCOUNTER → 2024-06-02 09:53 | Outpatient (BNVA) | payer MEDICARE, BC, SELFPAY | PROVIDERS: PCP Family Medicine; Referring Provider Family Medicine | DX: M16.11 Unilateral primary osteoarthritis, right hip (principal) | CPT/HCPCS: 20611; J1010 ==

== ENCOUNTER 2025-03-20 08:15 | Outpatient (CLI) | payer MEDICARE, BC, SELFPAY ==
[2025-03-20 14:02] LABS: ALT 15 U/L (14-59); AST 20 U/L (15-37); Albumin 3.8 g/dL (3.4-5.0); Alkaline Phosphatase 53 U/L (46-116); Anion Gap 7.9 mmol/L (3-11); BUN 8 mg/dL (7-18); Bilirubin, Total 0.7 mg/dL (0.2-1.0); CO2 30.1 mmol/L (21.0-32.0); Calcium 9.4 mg/dL (8.5-10.1); Chloride 100 mmol/L (98-107); Estimated GFR 92.39 (mL/min/1.73m2); Glucose 97 mg/dL (74-106); Potassium 3.2 mmol/L (3.5-5.1); Sodium 138 mmol/L (136-145); Total Protein 7.5 g/dL (6.4-8.2)
== END 2025-03-20 08:16 | disposition home or self-care (01) ==
LOC: LOS 08:15
PROVIDERS: PCP Family Medicine; Referring Provider Family Medicine; Visit Provider Family Medicine
DX: I10 Essential (primary) hypertension (principal)
CPT/HCPCS: 36415; 80053

== ENCOUNTER 2025-04-11 09:57 | Outpatient (CLI) | payer MEDICARE, BC, SELFPAY ==
--- NOTE | 2025-04-11 10:24 | DI.RAD_ITS ---
Exam(s) XR ANKLE RT COMPLETE EXAM: XR ANKLE RT COMPLETE CLINICAL HISTORY: M25.571 Pain rt ankle/jnts, eval pathology. TECHNIQUE: 2D digital imaging was performed. Three views. COMPARISON: No exams were available for comparison FINDINGS: BONES: No acute fracture is present. No bony destructive lesion is seen. Enthesophyte at the Achilles insertion. JOINTS: The ankle mortise is normally aligned. The tibiotalar joint space is maintained. SOFT TISSUE: Nor swelling around the lateral malleolus. Vascular calcifications. IMPRESSION: Soft tissue swelling. No evidence of fracture or ankle mortise widening.. DATA REPOSITORY: RADIATION DOSE DELIVERED:
== END 2025-04-11 10:17 ==
LOC: DI 09:58
PROVIDERS: PCP Family Medicine; Visit Provider Nurse Practitioner Family
DX: M25.571 Pain in right ankle and joints of right foot (principal)
CPT/HCPCS: 73610

== ENCOUNTER 2025-05-10 14:43 | Outpatient (CLI) | payer MEDICARE, BC, SELFPAY ==
--- NOTE | 2025-05-10 14:30 | DI.RAD_ITS ---
Exam(s) XR SHOULDER LT COMPLETE 2+V EXAM: XR SHOULDER LT COMPLETE 2+V CLINICAL HISTORY: LEFT SHOULDER PAIN. TECHNIQUE: 2D digital imaging was performed of the left shoulder. Two images were obtained. Grashey and axillary views were obtained. COMPARISON: CR RIGHT SHOULDER COMPLETE from 09/10/2014 FINDINGS: BONES: No acute fracture is present. No bony destructive lesion is seen. JOINTS: No dislocation present. There are degenerative changes seen at the acromioclavicular and glenohumeral joints. SOFT TISSUE: Normal. IMPRESSION: There are degenerative changes seen in the shoulder. DATA REPOSITORY: RADIATION DOSE DELIVERED:
== END 2025-05-10 14:44 | disposition home or self-care (01) ==
LOC: DIORS 14:43
PROVIDERS: PCP Family Medicine; Referring Provider Family Medicine; Visit Provider Student in an Organized Health Care Education/Training Program
DX: M19.012 Primary osteoarthritis, left shoulder (principal); M25.512 Pain in left shoulder
CPT/HCPCS: 99213; 20611; J1010; 73030

== ENCOUNTER 2025-06-11 09:52 | Outpatient (CLI) | payer MEDICARE, BC, SELFPAY ==
[2025-06-11 14:18] LABS: HCT 34.5 % (36.0-46.0); HGB 11.4 g/dL (11.2-15.7); MCH 30.7 pg (27.0-33.0); MCHC 33.0 % (32.0-36.0); MCV 93 fL (80-95); MPV 9.1 fL (8.0-11.0); Platelet Count 343 10^3/uL (130-400); RBC 3.71 10^6/uL (3.93-5.22); RDW 12.0 % (11.7-14.6); RDW-SD 41.5 fL; WBC 7.37 10^3/uL (4.4-10.8)
[2025-06-11 14:21] LABS: ESR 37 mm/hr (0-30)
[2025-06-11 14:27] LABS: C-Reactive Protein 2.33 mg/dL (<=0.50)
[2025-06-11 14:29] LABS: ALT 10 U/L (10-49); AST 22 U/L (<34); Albumin 4.4 g/dL (3.2-5.0); Alkaline Phosphatase 58 U/L (46-116); Anion Gap 8.8 mmol/L (3-11); BUN 9 mg/dL (9-23); Bilirubin, Total 0.60 mg/dL (0.2-1.2); CO2 28.9 mmol/L (20.0-31.0); Calcium 9.5 mg/dL (8.3-10.6); Chloride 97 mmol/L (98-107); Glucose 95 mg/dL (74-106); Potassium 3.7 mmol/L (3.5-5.1); Sodium 135 mmol/L (136-145); TSH (W/Ref FT4) 1.08 uIU/mL (0.55-4.78); Total Protein 7.8 g/dL (5.7-8.2); Vitamin B12 1373 pg/mL (211-911)
[2025-06-11 22:15] LABS: Lab Add On Test DONE
[2025-06-11 22:32] LABS: Iron 21 ug/dL (50-170)
[2025-06-11 22:36] LABS: Ferritin 149 ng/mL (7-271)
[2025-06-12 15:06] LABS: Albumin 51.7 % (55.8-66.1); Albumin g/dL 4.0 g/dL (3.6-5.2); Alpha 1 g/dL 0.50 g/dL (0.15-0.40); Alpha 2 g/dL 1.00 g/dL (0.50-1.00); Beta g/dL 0.90 g/dL (0.60-1.20); Gamma g/dL 1.20 g/dL (0.60-1.60); Total Protein 7.7 g/dL (6.3-8.2)
== END 2025-06-11 09:53 | disposition home or self-care (01) ==
PROVIDERS: PCP Family Medicine; Visit Provider Family Medicine
DX: R63.4 Abnormal weight loss (principal); E03.9 Hypothyroidism, unspecified; I10 Essential (primary) hypertension; D64.9 Anemia, unspecified
CPT/HCPCS: 36415; 80053; 85027; 85652; 82607; 82728; 83540; 84165; 84443; 86140; 86320

== ENCOUNTER → 2025-06-19 00:43 | Outpatient (CLI) | payer MEDICARE, BC, SELFPAY ==
--- NOTE | 2025-06-19 07:00 | DI.RAD_ITS ---
Exam(s) XR SHOULDER RT COMPLETE 2+V EXAM: XR SHOULDER RT COMPLETE 2+V CLINICAL HISTORY: r shoulder pain,m25.511. TECHNIQUE: 2D digital imaging was performed. COMPARISON: CR XR SHOULDER LT COMPLETE 2+V from 05/10/2025 FINDINGS: Four views No evidence of fracture or dislocation or soft tissue calcifications. There is a bony excrescence-enthesophyte at the insertional aspect of the rotator cuff upon the lateral aspect of the greater tuberosity. There are no independent calcifications within the non diminished subacromial space. There are mild degenerative changes in the glenohumeral and AC joints. No osseous lesions. IMPRESSION: As above. DATA REPOSITORY: RADIATION DOSE DELIVERED:
--- NOTE | 2025-06-19 07:00 | DI.RAD_ITS ---
Exam(s) XR CHEST 2V PA LATERAL EXAM: XR CHEST 2V PA LATERAL CLINICAL HISTORY: unintentional weight loss, smoking hx,r63.4,z87.891 TECHNIQUE: 2D digital imaging was performed. Two views. COMPARISON: US US PELVIS TRANSVAGINAL from 12/28/2018 FINDINGS: HEART: Normal size. Aorta: Not dilated. PULMONARY VASCULATURE: Normal. MEDIASTINUM: Unremarkable. LUNGS: Clear. PLEURAL SPACE: No pleural effusion or pneumothorax. BONE:Scoliosis and degenerative changes. SOFT TISSUES: Unremarkable. IMPRESSION: No acute abnormality. DATA REPOSITORY: RADIATION DOSE DELIVERED:
== END ==
LOC: DI 00:44
PROVIDERS: PCP Family Medicine; Visit Provider Family Medicine
DX: R63.4 Abnormal weight loss (principal); Z87.891 Personal history of nicotine dependence; M19.011 Primary osteoarthritis, right shoulder
CPT/HCPCS: 71046; 73030

== ENCOUNTER 2025-06-25 00:35 | Outpatient (RCR) | payer MEDICARE, BC, SELFPAY ==
[2025-06-18] MEDS: SODIUM FER. GLUC./SUC. 125 MG in Normal Saline 100 ML 110 MG IVPB (13:08)
[2025-06-18] MEDS: Normal Saline Flush 10 ML SYR IVP (13:08)
[2025-06-25] MEDS: SODIUM FER. GLUC./SUC. 125 MG in Normal Saline 100 ML 110 MG IVPB (12:58)
[2025-06-25] MEDS: Normal Saline Flush 10 ML SYR IVP (12:58)
== END 2025-07-11 23:59 | disposition home or self-care (01) ==
LOC: INF 00:35
PROVIDERS: PCP Family Medicine; Visit Provider Family Medicine
DX: D50.9 Iron deficiency anemia, unspecified (principal)
CPT/HCPCS: 96365; J2916